=== PATIENT | female | born 1950 | race Caucasian/White ===

== ENCOUNTER → 2023-08-18 23:59 | Outpatient (BNV) | payer OTHER, SELFPAY | PROVIDERS: PCP Internal Medicine; Visit Provider Internal Medicine Cardiovascular Disease | DX: I21.4 Non-ST elevation (NSTEMI) myocardial infarction (principal); I50.30 Unspecified diastolic (congestive) heart failure | CPT/HCPCS: 93458; 99152 ==

== ENCOUNTER 2023-09-20 08:25 | Outpatient (AMB) | payer OTHER, SELFPAY ==
--- NOTE | 2023-09-20 08:38 | A.OFFVIS_ITS ---
Intake Vital Signs 09/20/23 08:40 Height 5 ft 2.5 in Weight 164 lb 14.492 oz BMI 29.7 BP 130/62 Blood Pressure Location Lt brachial Position Sitting Pulse 73 Intake Visit Reasons: fu bmc dc Intake Note: [facility] [place] Batt Packer Required: No Accompanied by: Self / Same As Patient Allergies simvastatin Adverse Reaction (Intermediate, Verified 09/20/23 08:41) Muscle Pain Medication List - Last Reconciled 09/20/23 by Chris Mendiola MD apixaban (Eliquis) 5 mg PO BID aspirin 81 mg PO DAILY lisinopril 5 mg PO DAILY metoprolol tartrate 50 mg PO BID rosuvastatin 10 mg PO BEDTIME tamsulosin 0.8 mg PO DAILY HPI HPI Comments History of Present Illness Details Kelsie is here for follow-up after recent hospitalization to [facility]. She was seen initially by in the clinic due to atrial fibrillation. She has had atrial fibrillation for about 6 months since January 2023. That was leading to shortness of breath. He saw her in July and started on flecainide. After few days, he arrange elective cardioversion. After cardioversion, patient actually had hospitalization with shortness of breath and in that context also had some elevation of troponins. She was thought to be in congestive heart failure. That led to cardiac catheterization that showed significant left main disease and eventually leading to bypass surgery. After bypass, patient now returns for follow-up. She states she is actually doing much better. However, she still feels the palpitations. It seems she is back in atrial fibrillation. [facility] Medical History (Updated 09/20/23 @ 08:47 by Chris Mendiola MD) PAF (paroxysmal atrial fibrillation) Atherosclerotic cardiovascular disease Surgical History (Updated 09/20/23 @ 08:43 by Sydnee Barrett) Hx of CABG Family History (Updated 09/20/23 @ 08:43 by Sydnee Barrett) Mother No problems noted. Father No problems noted. (Updated 09/20/23 @ 08:44 by Sydnee Barrett) Alcohol intake: current Alcohol intake frequency: a few times a week Alcohol type: wine Patient Tobacco Use Status: Former Tobacco user Quit Date: 08/10/2023 Years Smoked: 20 +/- Review of Systems Const Denies weakness ENT Denies dizziness Card Denies chest pain, Denies chest pain with activity, Denies syncope, Denies rapid heart rate, Denies pedal edema, Denies edema, Denies leg edema, Denies lightheadedness, Denies palpitations, Denies dyspnea, Denies dyspnea on exertion and Denies orthopnea Resp Denies cough, Denies dyspnea and Denies dyspnea on exertion GI Denies hematochezia and Denies change in stool character Musc Denies abnormal gait, Denies muscle cramps, Denies muscle weakness, Denies numbness, Denies radiating pain into limb and Denies tingling Neuro Denies abnormal gait, Denies dizziness, Denies syncope, Denies numbness, Denies tingling and Denies weakness Endo Denies palpitations Physical Exam Vital Signs: Last Vital Signs Pulse 73 09/20/23 08:40 BP 130/62 09/20/23 08:40 BMI result Body Mass Index 29.7 Const General: comfortable and no acute distress Orientation/consciousness: patient oriented x3 HEENT Other: Unremarkable Head: Yes normal to inspection Neck Neck: Yes normal visual inspection Chest Chest palpation & inspection: normal inspection of the chest Resp Auscultation: clear to auscultation bilaterally Cardio Palpation: normal PMI Heart sounds: S1 normal heart sound present, S2 normal heart sound present, no gallops, no murmurs and no rubs GI Palpation (GI): Soft to palpation Back/Spine/Pelvis Other: unremarkable Skin General skin exam: no rashes or lesions noted Neuro General: patient oriented x3 Extrem General: Yes normal to inspection Psych Mental Status: mental status grossly normal Office Procedures EKG Details: EKG with atrial fibrillation at a rate of 73/Min. Cannot exclude old anteroseptal infarct. 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 Status post coronary bypass. She is currently in cardiac rehabilitation. Continue that. Continue aspirin. Continue statins. Will get the latest lipids from [facility]. (2) PAF (paroxysmal atrial fibrillation): Code(s): I48.0 - Paroxysmal atrial fibrillation Plan: She is no longer suitable for flecainide. Although she had cardioversion, she is back in atrial fibrillation. Per surgical notes, it seems that she had bradycardia and then amiodarone was stopped. Probably need to do another cardioversion but patient states she wants to wait for a few weeks at least till she completely heals from the surgery. That seems acceptable. In the interim, continue beta-blockers and anticoagulation. Check Holter. Plan Total time spent including review of data, counseling, documentation, coordination care-35 minutes. Orders: Orders CA echo transthoracic complete Today I25.10 - Atherosclerotic heart disease of [place] coronary artery without angina pectoris, I48.0 - Paroxysmal atrial fibrillation ECG 3 day holter monitor Today I48.0 - Paroxysmal atrial fibrillation, R00.2 - Palpitations Coding Level of Care Code Est Pt Level 4 (47038) Diagnoses Atherosclerotic cardiovascular disease I25.10 PAF (paroxysmal atrial fibrillation) I48.0 CPT Codes EKG - CPT: 77066-[id number], Complete ([id number])
[2023-09-20 08:40] VITALS: BP 130/62; PULSE 73; BMI 29.7
== END 2023-09-20 09:01 | disposition home or self-care (01) ==
PROVIDERS: PCP Internal Medicine; Visit Provider Internal Medicine
DX: I25.10 Atherosclerotic heart disease of native coronary artery without angina pectoris (principal); I48.0 Paroxysmal atrial fibrillation
CPT/HCPCS: 93010; 99214

== ENCOUNTER → 2023-09-20 08:25 | Outpatient (BNVA) | payer OTHER, SELFPAY | PROVIDERS: PCP Internal Medicine; Visit Provider Internal Medicine | DX: I25.10 Atherosclerotic heart disease of native coronary artery without angina pectoris (principal); I48.0 Paroxysmal atrial fibrillation | CPT/HCPCS: 93005 ==

== ENCOUNTER → 2023-10-28 07:54 | Outpatient (REF) | payer OTHER, SELFPAY ==
--- NOTE | 2023-10-28 08:01 | HM_ITS ---
* Total monitoring time 3 days. * Underlying rhythm is atrial fibrillation with an average rate of 73/Min. Range 61 to 114/Min. * Rare ventricular ectopy. Few couplets. One triplet. No significant runs. * No significant pauses or AV blocks. * No patient markers or events in diary. MTDD
== END ==
LOC: HO.CARD 07:54
PROVIDERS: PCP Internal Medicine; Visit Provider Internal Medicine
DX: R07.2 Precordial pain (principal); I48.0 Paroxysmal atrial fibrillation; I25.10 Atherosclerotic heart disease of native coronary artery without angina pectoris
CPT/HCPCS: 93242; 93306

== ENCOUNTER → 2023-10-28 08:01 | Outpatient (BNV) | payer OTHER, SELFPAY | PROVIDERS: PCP Internal Medicine; Visit Provider Internal Medicine Cardiovascular Disease | DX: I48.0 Paroxysmal atrial fibrillation (principal) | CPT/HCPCS: 93244; 93306 ==

== ENCOUNTER 2023-11-22 09:07 | Outpatient (AMB) | payer OTHER, SELFPAY ==
--- NOTE | 2023-11-22 09:09 | MHC.OFFVIS ---
Intake Vital Signs 11/22/23 09:10 Height 5 ft 2.5 in Weight 158 lb 11.725 oz BMI 28.6 BP 130/62 Blood Pressure Location Lt brachial Position Sitting Pulse 78 Intake Visit Reasons: f/up holter/ echo Intake Note: follow up Traffic Assistant Required: No Accompanied by: Self / Same As Patient Allergies simvastatin Adverse Reaction (Intermediate, Verified 11/22/23 09:10) Muscle Pain Medication List - Last Reconciled 11/22/23 by Chris Mendiola MD apixaban (Eliquis) 5 mg PO BID aspirin 81 mg PO DAILY lisinopril 5 mg PO DAILY metoprolol tartrate 50 mg PO BID rosuvastatin 10 mg PO BEDTIME HPI HPI Comments History of Present Illness Details Kelsie is here for follow-up after recent hospitalization to [facility]. She was seen initially by in the clinic due to atrial fibrillation. She has had atrial fibrillation for about 6 months since January 2023. That was leading to shortness of breath. He saw her in July and started on flecainide. After few days, he arranged elective cardioversion. After cardioversion, patient actually had hospitalization with shortness of breath and in that context also had some elevation of troponins. She was thought to be in congestive heart failure. That led to cardiac catheterization that showed significant left main disease and eventually leading to bypass surgery. She states that she is actually doing fine. Rarely feels palpitations. No other complaints like angina or shortness of breath. No other complaints. States she is getting along okay. [facility] Medical History (Updated 11/22/23 @ 09:33 by Chris Mendiola MD) PAF (paroxysmal atrial fibrillation) Atherosclerotic cardiovascular disease Surgical History Hx of CABG Family History Mother No problems noted. Father No problems noted. Social History Alcohol intake: current Alcohol intake frequency: a few times a week Alcohol type: wine Patient Tobacco Use Status: Former Tobacco user Quit Date: 08/10/2023 Years Smoked: 20 +/- Review of Systems Const Denies weakness ENT Denies dizziness Card Denies chest pain, Denies chest pain with activity, Denies syncope, Denies rapid heart rate, Denies pedal edema, Denies edema, Denies leg edema, Denies lightheadedness, Denies palpitations, Denies dyspnea, Denies dyspnea on exertion and Denies orthopnea Resp Denies cough, Denies dyspnea and Denies dyspnea on exertion GI Denies hematochezia and Denies change in stool character Musc Denies abnormal gait, Denies muscle cramps, Denies muscle weakness, Denies numbness, Denies radiating pain into limb and Denies tingling Neuro Denies abnormal gait, Denies dizziness, Denies syncope, Denies numbness, Denies tingling and Denies weakness Endo Denies palpitations Physical Exam Vital Signs: Last Vital Signs Pulse 78 11/22/23 09:10 BP 130/62 11/22/23 09:10 BMI result Body Mass Index 28.6 Const General: comfortable and no acute distress Orientation/consciousness: patient oriented x3 HEENT Other: Unremarkable Head: Yes normal to inspection Neck Neck: Yes normal visual inspection Chest Chest palpation & inspection: normal inspection of the chest Resp Auscultation: clear to auscultation bilaterally Cardio Palpation: normal PMI Heart sounds: S1 normal heart sound present, S2 normal heart sound present, no gallops, no murmurs and no rubs GI Palpation (GI): Soft to palpation Back/Spine/Pelvis Other: unremarkable Skin General skin exam: no rashes or lesions noted Neuro General: patient oriented x3 Extrem General: Yes normal to inspection Psych Mental Status: mental status grossly normal Assessment & Plan Assessment & Plan (1) Atherosclerotic cardiovascular disease: Code(s): I25.10 - Atherosclerotic heart disease of [place] coronary artery without angina pectoris Plan: Cardiac catheterization showed critical left main stenosis and mid RCA [place] with collaterals. Status post coronary bypass. Continue aspirin. Continue statins. She states she is due for labs through her PCP and advised her to send us copies. We need lipids. (2) PAF (paroxysmal atrial fibrillation): Code(s): I48.0 - Paroxysmal atrial fibrillation Plan: We discussed about another cardioversion but she states she would rather hold off at this time. She would like to leave things the way they are. She remains on beta-blockers and Eliquis. Holter shows atrial fibrillation with adequate rate control. In the echocardiogram, left atrium described to be moderately dilated. (3) Cardiomyopathy: Code(s): I42.9 - Cardiomyopathy, unspecified Plan: Echocardiogram shows mild cardiomyopathy with an LVEF of 45-50%. Could be related to coronary disease as well as atrial fibrillation. Clinically, no heart failure symptoms or signs. Plan Total time spent including review of data, counseling, documentation, coordination care-35 minutes. Coding Level of Care Code Est Pt Level 4 (38975) Diagnoses Atherosclerotic cardiovascular disease I25.10 PAF (paroxysmal atrial fibrillation) I48.0 Cardiomyopathy I42.9
[2023-11-22 09:10] VITALS: BP 130/62; PULSE 78; BMI 28.6
== END 2023-11-22 09:26 | disposition home or self-care (01) ==
PROVIDERS: PCP Internal Medicine; Visit Provider Internal Medicine
DX: I25.10 Atherosclerotic heart disease of native coronary artery without angina pectoris (principal); I48.0 Paroxysmal atrial fibrillation; I42.9 Cardiomyopathy, unspecified
CPT/HCPCS: 99214

== ENCOUNTER → 2023-11-22 09:07 | Outpatient (BNVA) | payer OTHER, SELFPAY | PROVIDERS: PCP Internal Medicine; Visit Provider Internal Medicine ==

== ENCOUNTER 2024-03-05 08:29 | Outpatient (AMB) | payer OTHER, SELFPAY ==
[2024-03-05 08:40] VITALS: BP 140/78; PULSE 78; O2SAT 98; BMI 29.0
--- NOTE | 2024-03-05 08:40 | A.OFFVIS_ITS ---
Vital Signs 03/05/24 08:40 Height 5 ft 2.5 in Weight 160 lb 14.999 oz BMI 29.0 BP 140/78 H Blood Pressure Location Lt brachial Position Sitting Pulse 78 Pulse Source Pulse Oximeter Pulse Oximetry (%) 98 Oxygen Delivery Method Room Air Intake Visit Reasons: 4 mth f/up Allergies simvastatin Adverse Reaction (Intermediate, Verified 11/22/23 09:10) Muscle Pain Medication List - Last Reconciled 03/05/24 by Chris Mendiola MD apixaban (Eliquis) 5 mg PO BID aspirin 81 mg PO DAILY lisinopril 5 mg PO DAILY metoprolol tartrate 50 mg PO BID rosuvastatin 20 mg PO DAILY HPI Comments Details: Kelsie returns for follow-up. To recall, she was seen initially by in the clinic due to atrial fibrillation. She has had atrial fibrillation for a bout 6 months since January 2023. That was leading to shortness of breath. He saw her in July and started on flecainide. After few days, he arranged elective cardioversion. After cardioversion, patient actually had hospitalization with shortness of breath and in that context also had some elevation of troponins. She was thought to be in congestive heart failure. That led to cardiac catheterization that showed significant left main disease and eventually leading to bypass surgery. Since last seen, she states that her legs are getting tired soon after walking but otherwise no specific symptoms like angina or shortness of breath or palpitations. [facility] Medical History (Updated 03/05/24 @ 10:04 by Chris Mendiola MD) PAF (paroxysmal atrial fibrillation) Atherosclerotic cardiovascular disease Surgical History Hx of CABG Family History Mother No problems noted. Father No problems noted. Social History Alcohol intake: current Alcohol intake frequency: a few times a week Alcohol type: wine Patient Tobacco Use Status: Former Tobacco user Quit Date: 08/10/2023 Years Smoked: 20 +/- Review of Systems Const Denies weakness ENT Denies dizziness Card Denies chest pain, Denies chest pain with activity, Denies syncope, Denies rapid heart rate, Denies pedal edema, Denies edema, Denies leg edema, Denies lightheadedness, Denies palpitations, Denies dyspnea, Denies dyspnea on exertion and Denies orthopnea Resp Denies cough, Denies dyspnea and Denies dyspnea on exertion GI Denies hematochezia and Denies change in stool character Musc Denies abnormal gait, Denies muscle cramps, Denies muscle weakness, Denies numbness, Denies radiating pain into limb and Denies tingling Neuro Denies abnormal gait, Denies dizziness, Denies syncope, Denies numbness, Denies tingling and Denies weakness Endo Denies palpitations Physical Exam Vital Signs: Last Vital Signs Pulse 78 03/05/24 08:40 BP 140/78 H 03/05/24 08:40 Pulse Ox 98 03/05/24 08:40 Oxygen Delivery Method Room Air 03/05/24 08:40 BMI result Body Mass Index 29.0 Const General: comfortable and no acute distress Orientation/consciousness: patient oriented x3 HEENT Other: Unremarkable Head: Yes normal to inspection Neck Neck: Yes normal visual inspection Chest Chest palpation & inspection: normal inspection of the chest Resp Auscultation: clear to auscultation bilaterally Cardio Palpation: normal PMI Heart sounds: S1 normal heart sound present, S2 normal heart sound present, no gallops, no murmurs and no rubs GI Palpation (GI): Soft to palpation Back/Spine/Pelvis Other: unremarkable Skin General skin exam: no rashes or lesions noted Neuro General: patient oriented x3 Extrem General: Yes normal to inspection Psych Mental Status: mental status grossly normal Assessment & Plan Assessment & Plan (1) Atherosclerotic cardiovascular disease: Code(s): I25.10 - Atherosclerotic heart disease of [place] coronary artery without angina pectoris Category: Medical Plan: Cardiac catheterization showed critical left main stenosis 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 Status post coronary bypass. Doing well. Remains on aspirin and statins. Possibly, just Eliquis only in the long run and stop aspirin. Lipids are being followed through her own PCP. She states that her statin dose has recently been increased. Last LDL is 77 mg/dL. (2) Persistent atrial fibrillation: Code(s): I48.19 - Other persistent atrial fibrillation Category: Medical Plan: Prior Holter shows atrial fibrillation adequate rate control. In the echocardiogram, moderately dilated left atrium. We discussed about consequences of chronic persistent atrial fibrillation. At this time, she states that she would like to hold off as she did not have a good experience last time. We will reassess next time. (3) Cardiomyopathy: Code(s): I42.9 - Cardiomyopathy, unspecified Category: Medical Plan: Echocardiogram shows mild cardiomyopathy with an LVEF of 45-50%. Could be related to coronary disease as well as atrial fibrillation. Clinically, no heart failure symptoms or signs. Recheck before next visit. Orders: Orders ECG 3 day holter monitor 3 Months I48.0 - Paroxysmal atrial fibrillation CA echo transthoracic complete 3 Months I42.9 - Cardiomyopathy, unspecified Coding Level of Care Code Est Pt Level 4 (77099) Diagnoses Atherosclerotic cardiovascular disease I25.10 Persistent atrial fibrillation I48.19 Cardiomyopathy I42.9
== END 2024-03-05 09:35 | disposition home or self-care (01) ==
PROVIDERS: PCP Internal Medicine; Referring Provider Internal Medicine; Visit Provider Internal Medicine
DX: I25.10 Atherosclerotic heart disease of native coronary artery without angina pectoris (principal); I48.19 Other persistent atrial fibrillation; I42.9 Cardiomyopathy, unspecified
CPT/HCPCS: 99214

== ENCOUNTER → 2024-03-05 08:29 | Outpatient (BNVA) | payer OTHER, SELFPAY | PROVIDERS: PCP Internal Medicine; Visit Provider Internal Medicine ==

== ENCOUNTER 2024-03-23 12:06 | Day surgery (SDC) | payer OTHER, SELFPAY ==
[2024-03-21 15:55] VITALS: BMI 29.0
[2024-03-23] VITALS (7 sets, daily range): BP systolic 109–152; BP diastolic 55–97; PULSE 73–140; RESP 16; TEMP 36.1–36.5; O2SAT 97–99; BMI 29.0
[2024-03-23] MEDS: Lactated Ringers 1,000 ML 50 ML IVCONT (12:59)
--- NOTE | 2024-03-23 13:37 | HO.ANESPROP2 ---
COUNTS INCLUDE 234 BEDS AT THE [facility] Active Problems Active Problems: All Active Problems (Updated 03/23/24 @ 12:30 by Ciara Adams RN) Persistent atrial fibrillation (Acute) Cardiomyopathy (Acute) PAF (paroxysmal atrial fibrillation) (Acute) Atherosclerotic cardiovascular disease (Acute) Past Medical History Medical History (Updated 03/23/24 @ 12:30 by Ciara Adams RN) Thyroid nodule Diet-controlled diabetes mellitus PAF (paroxysmal atrial fibrillation) Atherosclerotic cardiovascular disease Family History Family History Mother No problems noted. Father No problems noted. Family history of problems with anesthesia: No Surgical History Surgical History H/O colonoscopy Hx of CABG History of Problems with Anesthesia: No Social History Social History Alcohol intake: current Alcohol intake frequency: holidays/special occasions only Alcohol type: wine Patient Tobacco Use Status: Former Tobacco user Years Smoked: 20 +/- Use of substances other than those prescribed or required for medical reasons: No Are you DNR?: No Advance Directives: No Advance Directives Information Provided: Yes Meds Allergies Allergy/AdvReac Type Severity Reaction Status Date / Time simvastatin AdvReac Intermediate Muscle Pain Verified 03/23/24 12:30 Active Medications: Current Medications Lactated Ringer's (Lr) 1,000 mls @ 50 mls/hr IVCONT .Q20H VELVET Last Admin: 03/23/24 12:59 Dose: 50 mls/hr Home Medications ?Medication ?Instructions ?Recorded ?Confirmed ?Last Taken ?Type apixaban 5 mg tablet (Eliquis) 5 mg PO BID 09/20/23 03/05/24 Unknown History aspirin 81 mg tablet,delayed 81 mg PO DAILY 09/20/23 03/05/24 Unknown History release lisinopril 5 mg tablet 5 mg PO DAILY 09/20/23 03/05/24 Unknown History metoprolol tartrate 50 mg tablet 50 mg PO BID 09/20/23 03/05/24 Unknown History rosuvastatin 20 mg tablet 20 mg PO DAILY 03/05/24 03/05/24 Unknown History Exam Height,Weight and Vital Signs: Height 5 ft 2.5 in Weight 73.028 kg Last Vital Signs Temp 97.7 F 03/23/24 12:39 Pulse 140 H 03/23/24 12:39 Resp 16 03/23/24 12:39 BP 151/97 H 03/23/24 12:39 Pulse Ox 97 03/23/24 12:39 O2 Del Method Room Air 03/23/24 12:39 Airway Mallampati Class: II (caps laterally) TM Dist: >3cm Neck ROM: Full Heart: irreg Lungs: cts Assessment and Plan Assessment Anesthesia Assessment: Anesthesia Plan Discussed and Chart Reviewed Final Anesthetic Review Family History of Problems with Anesthesia: No History of Problems with Anesthesia: No NPO: Yes ASA Class: III Final Preanesthetic Review: No Changes in Pt Med Stat, Meds/Allgs Chart Reviewed and Consent Obtained/Reviewed Patient Risk: Low Procedure Risk: Low Anesthetic Plan Anesthetic Plan: MAC: Disposition: Standard PACU
--- NOTE | 2024-03-23 13:39 | MHC.SHP ---
Pre-Procedural Eval Section A - 24 Hr Update-Section A only Date of Service: 03/23/24 The patient is an INPATIENT: No Section B - Complete if H&P > 30 days Chief Complaint: Paroxysmal atrial fibrillation Allergies: Allergies Allergy/AdvReac Type Severity Reaction Status Date / Time simvastatin AdvReac Intermediate Muscle Pain Verified 03/23/24 12:30 Plan I have reviewed the history and physical and performed a pertinent physical examination on my patient. No changes have occurred unless specified. Time Spent With Patient Time: Total time managing care of this patient today ____ minutes.
--- NOTE | 2024-03-23 13:40 | HO.CARDIVERS ---
Cardioversion Procedure Note Cardioversion Date of Procedure: 03/23/2024 Indication for Procedure: Atrial fibrillation rapid ventricular rate Pre-Op Diagnosis: Atrial fibrillation Post-Op Diagnosis: Sinus rhythm Consent: Informed consent obtained. Procedure: After informed consent was obtained, patient was taken to the PACU. The patient was then positioned appropriately. The cardioversion pads were placed in anteroposterior position. Once under anesthesia, 120 joules of synchronized shock was administered. The rhythm converted from atrial fibrillation to sinus rhythm. Patient remained in sinus rhythm after the end of procedure. Complications: None. Impression: Successful cardioversion. Recommendations: Start amiodarone loading followed by maintenance. Continue anticoagulation. Follow-up in clinic.
--- NOTE | 2024-03-23 14:15 | ECG_ITS ---
Test Reason : s/p cardioversion Blood Pressure : / mmHG Vent. Rate : 077 BPM Atrial Rate : 077 BPM P-R Int : 184 ms QRS Dur : 094 ms QT Int : 392 ms P-R-T Axes : 091 093 -08 degrees QTc Int : 443 ms Sinus rhythm with a demand pacemaker Premature atrial complexes Premature ventricular complexes Rightward axis Anterior infarct , age undetermined T wave abnormality, consider inferior ischemia Abnormal ECG No previous ECGs available Referred By: Francisco Sanders Electronically Signed By:FRANCISCO SANDERS
[2024-03-23] MEDS: Metoprolol Tartrate 50 MG TABLET PO (14:54)
[2024-03-23] MEDS: Amiodarone HCL 200 MG TABLET 400 MG PO (14:57)
== END 2024-03-23 15:27 | disposition home or self-care (01) ==
PROVIDERS: PCP Internal Medicine; Visit Provider Internal Medicine
PROC: 5A2204Z Restoration of Cardiac Rhythm, Single (ICD-10-PCS; principal; 2024-03-23 13:50)
DX: I48.19 Other persistent atrial fibrillation (principal); I25.10 Atherosclerotic heart disease of native coronary artery without angina pectoris; I42.9 Cardiomyopathy, unspecified; Z79.01 Long term (current) use of anticoagulants; Z79.82 Long term (current) use of aspirin; Z79.899 Other long term (current) drug therapy; Z95.1 Presence of aortocoronary bypass graft
CPT/HCPCS: 92960; 93005; J2704

== ENCOUNTER → 2024-03-23 12:06 | Outpatient (BNV) | payer OTHER, SELFPAY | PROVIDERS: PCP Internal Medicine; Visit Provider Internal Medicine | DX: I48.91 Unspecified atrial fibrillation (principal) | CPT/HCPCS: 92960; 93010 ==

== ENCOUNTER 2024-03-30 08:44 | Outpatient (AMB) | payer OTHER, SELFPAY ==
--- NOTE | 2024-03-30 09:00 | AM.OFFVISNUR ---
Intake Intake Visit Reasons: EKG post 03/23 cardioversion Allergies simvastatin Adverse Reaction (Intermediate, Verified 03/23/24 12:30) Muscle Pain Nursing Note EKG performed after cardioversion PT states she is doing and feels much better no symptoms PT take Amiodarone 200mg PO daily / 400 mg PO BID Office Procedures EKG [id number], Complete Coding CPT Codes EKG - CPT: 00403-[id number], Complete ([id number])
== END 2024-03-30 10:05 | disposition home or self-care (01) ==
PROVIDERS: PCP Internal Medicine; Visit Provider Internal Medicine
DX: R94.31 Abnormal electrocardiogram [ECG] [EKG] (principal)
CPT/HCPCS: 93010

== ENCOUNTER → 2024-03-30 08:44 | Outpatient (BNVA) | payer OTHER, SELFPAY | PROVIDERS: PCP Internal Medicine; Visit Provider Internal Medicine | DX: Z98.890 Other specified postprocedural states (principal) | CPT/HCPCS: 93005 ==

== ENCOUNTER → 2024-05-24 09:46 | Outpatient (REF) | payer OTHER, SELFPAY ==
--- NOTE | 2024-05-24 09:49 | HM_ITS ---
* Total monitoring time 3 days. * Underlying rhythm is sinus with an average rate of 51/Min. About 96% of the time, rate < 60/Min. * Rare supraventricular and ventricular ectopy. * No significant pauses or high-grade AV blocks. * No patient markers or diary events. MTDD
== END ==
LOC: HO.CARD 09:46
PROVIDERS: PCP Internal Medicine; Visit Provider Internal Medicine
DX: I48.0 Paroxysmal atrial fibrillation (principal); I42.9 Cardiomyopathy, unspecified
CPT/HCPCS: 93242

== ENCOUNTER → 2024-05-24 09:49 | Outpatient (BNV) | payer OTHER, SELFPAY | PROVIDERS: PCP Internal Medicine; Visit Provider Internal Medicine | DX: I47.10 Supraventricular tachycardia, unspecified (principal) | CPT/HCPCS: 93244 ==

== ENCOUNTER 2024-06-11 10:00 | Outpatient (AMB) | payer OTHER, SELFPAY ==
[2024-06-11 10:18] VITALS: BP 130/60; PULSE 55; BMI 29.0
--- NOTE | 2024-06-11 10:18 | A.OFFVIS_ITS ---
Vital Signs 06/11/24 10:18 Height 5 ft 2 in Weight 158 lb 11.725 oz BMI 29.0 BP 130/60 Blood Pressure Location Lt brachial Position Sitting Pulse 55 Pulse Source Monitor Intake Visit Reasons: 3m follow up/echo/holter Allergies simvastatin Adverse Reaction (Intermediate, Verified 03/23/24 12:30) Muscle Pain Medication List - Last Reconciled 06/11/24 by Chris Mendiola MD amiodarone 200 mg PO DAILY 90 days apixaban (Eliquis) 5 mg PO BID aspirin 81 mg PO DAILY lisinopril 5 mg PO DAILY metoprolol tartrate 25 mg PO BID rosuvastatin 20 mg PO DAILY HPI Comments Details: Kelsie returns for follow-up. To recall, she was seen initially by in the clinic due to atrial fibrillation. She has had atrial fibrillation for about 6 months since January 2023. That was leading to shortness of breath. He saw her and started on flecainide. After few days, he arranged elective cardioversion. After cardioversion, patient actually had hospitalization with shortness of breath and in that context also had some elevation of troponins. She was thought to be in congestive heart failure. That led to cardiac catheterization that showed significant left main disease and eventually leading to bypass surgery. She continued to be in atrial fibrillation after the bypass surgery. Recently, we did elective cardioversion and now she is back to normal sinus rhythm. She states she feels good. No specific cardiac complaints. [facility] Medical History (Updated 03/23/24 @ 12:30 by Ciara Adams RN) Thyroid nodule Diet-controlled diabetes mellitus PAF (paroxysmal atrial fibrillation) Atherosclerotic cardiovascular disease Surgical History H/O colonoscopy Hx of CABG Family History Mother No problems noted. Father No problems noted. Social History Alcohol intake: current Alcohol intake frequency: holidays/special occasions only Alcohol type: wine Patient Tobacco Use Status: Former Tobacco user Years Smoked: 20 +/- Review of Systems Const Denies weakness ENT Denies dizziness Card Denies chest pain, Denies chest pain with activity, Denies syncope, Denies rapid heart rate, Denies pedal edema, Denies edema, Denies leg edema, Denies lighthead edness, Denies palpitations, Denies dyspnea, Denies dyspnea on exertion and Denies orthopnea Resp Denies cough, Denies dyspnea and Denies dyspnea on exertion GI Denies hematochezia and Denies change in stool character Musc Denies abnormal gait, Denies muscle cramps, Denies muscle weakness, Denies numbness, Denies radiating pain into limb and Denies tingling Neuro Denies abnormal gait, Denies dizziness, Denies syncope, Denies numbness, Denies tingling and Denies weakness Endo Denies palpitations Physical Exam Vital Signs: Last Vital Signs Pulse 55 06/11/24 10:18 BP 130/60 06/11/24 10:18 BMI result Body Mass Index 29.0 Const General: comfortable and no acute distress Orientation/consciousness: patient oriented x3 HEENT Other: Unremarkable Head: Yes normal to inspection Neck Neck: Yes normal visual inspection Chest Chest palpation & inspection: normal inspection of the chest Resp Auscultation: clear to auscultation bilaterally Cardio Palpation: normal PMI Heart sounds: S1 normal heart sound present, S2 normal heart sound present, no gallops, no murmurs and no rubs GI Palpation (GI): Soft to palpation Back/Spine/Pelvis Other: unremarkable Skin General skin exam: no rashes or lesions noted Neuro General: patient oriented x3 Extrem General: Yes normal to inspection Psych Mental Status: mental status grossly normal Office Procedures EKG Details: EKG with sinus bradycardia at 55/Min; rightward axis; incomplete right bundle- branch block and can not exclude old anterior infarct; borderline [place] prolongation to 208 millisecond; [place]. [id number], Complete Assessment & Plan Assessment & Plan (1) Atherosclerotic cardiovascular disease: Code(s): I25.10 - Atherosclerotic heart disease of [place] coronary artery without angina pectoris Category: Medical Plan: Status post coronary bypass. Doing well. Remains on aspirin and statins. Possibly, just Eliquis only in the long run and stop aspirin. Lipids are being followed through her own PCP. She states that her statin dose has recently been increased. Last LDL is 77 mg/dL. (2) Persistent atrial fibrillation: Code(s): I48.19 - Other persistent atrial fibrillation Category: Medical Plan: Status post cardioversion. In the Holter monitor, underlying rhythm is sinus bradycardia with an average rate of 51/Min and mostly in sinus bradycardia. Hence we can decrease the beta-michael dose from 25 mg twice a day to once a day. Continue amiodarone for the foreseeable future. Eventually may be Multaq. Continue anticoagulation. (3) Cardiomyopathy: Code(s): I42.9 - Cardiomyopathy, unspecified Category: Medical Plan: Echocardiogram shows mild cardiomyopathy with an LVEF of 45-50%. Could be related to coronary disease as well as atrial fibrillation. Clinically, no heart failure symptoms or signs. Repeat echocardiogram denied by insurance. Medications: New metoprolol succinate ER (Toprol XL) 25 mg PO DAILY 90 tabs 3RF I48.0 - Paroxysmal atrial fibrillation Coding Level of Care Code Est Pt Level 4 (88829) Diagnoses Atherosclerotic cardiovascular disease I25.10 Persistent atrial fibrillation I48.19 Cardiomyopathy I42.9 CPT Codes EKG - CPT: 14033-[id number], Complete ([id number])
== END 2024-06-11 10:41 | disposition home or self-care (01) ==
PROVIDERS: PCP Internal Medicine; Visit Provider Internal Medicine
DX: I25.10 Atherosclerotic heart disease of native coronary artery without angina pectoris (principal); I48.19 Other persistent atrial fibrillation; I42.9 Cardiomyopathy, unspecified
CPT/HCPCS: 93010; 99214

== ENCOUNTER → 2024-06-11 10:00 | Outpatient (BNVA) | payer OTHER, SELFPAY | PROVIDERS: PCP Internal Medicine; Visit Provider Internal Medicine | DX: I25.10 Atherosclerotic heart disease of native coronary artery without angina pectoris (principal); I42.9 Cardiomyopathy, unspecified; Z79.01 Long term (current) use of anticoagulants; Z79.82 Long term (current) use of aspirin; Z79.899 Other long term (current) drug therapy | CPT/HCPCS: 93005 ==

== ENCOUNTER 2024-09-26 09:35 | Outpatient (AMB) | payer OTHER, SELFPAY ==
[2024-09-26 09:37] VITALS: BP 130/64; PULSE 79; BMI 29.8
--- NOTE | 2024-09-26 09:37 | A.OFFVIS_ITS ---
Vital Signs 09/26/24 09:37 Height 5 ft 2 in Weight 163 lb 2.273 oz BMI 29.8 BP 130/64 Blood Pressure Location Lt brachial Position Sitting Pulse 79 Pulse Source Monitor Intake Visit Reasons: 3 mth f/up Third Helper Required: No Accompanied by: Self / Same As Patient Allergies simvastatin Adverse Reaction (Intermediate, Verified 03/23/24 12:30) Muscle Pain Medication List - Last Reconciled 09/26/24 by Chris Mendiola MD amiodarone 100 mg PO DAILY apixaban (Eliquis) 5 mg PO BID cilostazol 50 mg PO BID lisinopril 5 mg PO DAILY metoprolol succinate ER (Toprol XL) 25 mg PO DAILY rosuvastatin 40 mg PO DAILY HPI Comments Details: Kelsie returns for follow-up regarding atrial fibrillation and coronary artery disease. She underwent cardioversion February of this year. May need on amiodarone and Eliquis. She is doing fine in that regard. Otherwise, history of coronary disease and that led to bypass surgery in 2022. No anginal-type symptoms. Rare episodes of dizziness. Somewhat nonspecific. She believes it started after taking cilostazol. However, it is helping her for some vascular symptoms. She also had recent thyroid surgery. 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 Father No problems noted. Social History Alcohol intake: current Alcohol intake frequency: holidays/special occasions only Alcohol type: wine Patient Tobacco Use Status: Former Tobacco user Years Smoked: 20 +/- Review of Systems Const Denies chills, Denies fatigue, Denies fever(s), Denies frequent falls, Denies weakness, Denies weight gain and Denies weight loss ENT Denies dizziness Card Denies chest pain, Denies leg edema, Denies lightheadedness, Denies palpitations, Denies dyspnea and Denies dyspnea on exertion Resp Denies cough, Denies dyspnea and Denies dyspnea on exertion GI Denies hematochezia Musc Denies abnormal gait, Denies muscle weakness, Denies numbness, Denies radiating pain into limb and Denies tingling Neuro Denies abnormal gait, Denies dizziness, Denies frequent falls, Denies numbness, Denies tingling and Denies weakness Endo Denies fatigue and Denies palpitations Physical Exam Vital Signs: Last Vital Signs Pulse 79 09/26/24 09:37 BP 130/64 09/26/24 09:37 BMI result Body Mass Index 29.8 Const General: comfortable and no acute distress Orientation/consciousness: patient oriented x3 HEENT Other: Unremarkable Head: Yes normal to inspection Neck Neck: Yes normal visual inspection Chest Chest palpation & inspection: normal inspection of the chest Resp Auscultation: clear to auscultation bilaterally Cardio Palpation: normal PMI Heart sounds: S1 normal heart sound present, S2 normal heart sound present, no gallops, no murmurs and no rubs GI Palpation (GI): Soft to palpation Back/Spine/Pelvis Other: unremarkable Skin General skin exam: no rashes or lesions noted Neuro General: patient oriented x3 Extrem General: Yes normal to inspection Psych Mental Status: mental status grossly normal Office Procedures EKG Details: EKG with underlying sinus rhythm at 79/Min; rightward axis; incomplete right bundle-branch block; DE 202 milliseconds; corrected QT 511 milliseconds. [id number], Complete Assessment & Plan Assessment & Plan (1) Atherosclerotic cardiovascular disease: Code(s): I25.10 - Atherosclerotic heart disease of [place] coronary artery without angina pectoris Category: Medical Plan: Status post coronary bypass. Clinically, no angina. We can stop aspirin as she is already on Eliquis. Last LDL from [facility] 100 mg/dL. Per patient, PCP has already increase the statin dose and she is also due for repeat labs. (2) PAF (paroxysmal atrial fibrillation): Code(s): I48.0 - Paroxysmal atrial fibrillation Category: Medical Plan: Status post cardioversion. In the Holter monitor, underlying rhythm is sinus bradycardia with an average rate of 51/Min and mostly in sinus bradycardia. On low-dose beta-blockers. We can decrease the Amiodarone to 100 mg daily because of interaction with Cilostazol. Decision regarding continuing Amiodarone long-term to be decided. Possible candidate for Multaq, but that might also cause QT prolongation with Cilostazol. Continue anticoagulation. Recheck EKG in 3 months. (3) Cardiomyopathy: Code(s): I42.9 - Cardiomyopathy, unspecified Category: Medical Plan: Echocardiogram shows mild cardiomyopathy with an LVEF of 45-50%. Could be related to coronary disease as well as atrial fibrillation. Clinically, no heart failure symptoms or signs. Repeat echocardiogram denied by insurance. Coding Level of Care Code Est Pt Level 4 (05573) Diagnoses Atherosclerotic cardiovascular disease I25.10 PAF (paroxysmal atrial fibrillation) I48.0 Cardiomyopathy I42.9 CPT Codes EKG - CPT: 30071-[id number], Complete ([id number])
--- OUTSIDE RECORDS SUMMARY | 2024-10-02 17:12 | XMS_ITS | Continuity of Care Document ---
Author Organization [facility] Address [address] [place] [address]- Care Team Providers Care Broadband Installer Name Role Phone Jo HANLEY, Lance Mix Primary Care Physician Encounter [facility] Date(s): 08/08/24 - 09/07/24 [facility] [address] [place] [address]- Encounter Type: Triage Allergies, Adverse Reactions, Alerts Substance Criticality Severity Reaction Reaction Severity Status Zocor very severe myalgias took 6 weeks to resolve Active egg-containing compound Active Immunizations Given and Recorded Vaccine Date Status Refusal Reason RSV vaccine preF3, recombinant 07/18/23 Recorded influenza virus vaccine, inactivated 07/18/23 Isidro rded influenza virus vaccine, inactivated 07/19/22 Isidro rded influenza virus vaccine, inactivated 07/06/21 Isidro rded influenza virus vaccine, inactivated 08/01/19 Isidro rded influenza virus vaccine, inactivated 08/30/18 Isidro rded influenza virus vaccine, inactivated 07/24/18 Isidro rded influenza virus vaccine, inactivated 11/15/17 Isidro rded influenza virus vaccine, inactivated 07/25/17 Isidro rded SARS-CoV-2(COVID-19)mRNA-LNP vac([id number]) 07/18/23 Recorded tetanus-diphtheria toxoids (Td) 02/10/23 Given tetanus-diphtheria toxoids (Td) 03/15/06 Given [id number] 12y+ bivalent booster vax 08/04/22 Recorded SARS-CoV-2 (COVID-19) mRNA BNT-162b2 vac 08/06/21 Recorded SARS-CoV-2 (COVID-19) mRNA BNT-162b2 vac 01/24/21 Given SARS-CoV-2 (COVID-19) mRNA BNT-162b2 vac 01/03/21 Given Influenza Virus Vaccine (oldterm) 1 07/25/20 Recor ded pneumococcal 23-valent vaccine 2 01/05/18 Given pneumococcal 13-valent vaccine 03/04/17 Recorded pneumococcal 13-valent vaccine 11/24/16 Recorded tetanus/diphtheria/pertussis, acel(Tdap) 02/20/13 Given Zoster Vaccine Live 01/08/13 Given Pneumococcal Vaccine (oldterm) 3 11/18/09 Given 1Result Comment: done at [facility] 2Result Comment: [01/05/2018] [id number] 3Admin Note: info sheet given Medications Accu-Chek Dianna Test Strips See Instructions, # 100 units, Refills 3, Tot. Refills 3, Maintenance, use daily BSs a re unstable,09/25/12 3:13:07 PM EST Start Date: 09/25/12 Status: Ordered Quantity: 100.0 Unit: Units Repeat number: 4 amiodarone 200 mg oral tablet 200 mg, 1, tablet, By Mouth, Daily, # 30 tablet, Refills 0, Maintenance, 04/09/24 9:45:00 AM EDT, Partial fill upon patient request if the prescription is for a schedule II opioid drug. Start Date: 04/09/24 Status: Ordered Quantity: 30.0 Unit: tablet Repeat number: 1 aspirin 81 mg oral delayed release tablet = 81 mg, By Mouth, Daily, # 30 tablet, 0 Refills, Maintenance, 08/31/23 2:29:00 PM EST, EC Tablet, [facility], Partial fill upon patient request if the prescription is for a schedule II opioid drug., 158, cm, 08/31/23 10:59:00 EST, Height, 71, kg, 08/20/23 20:30:00 EDT, Dry Weight Start Date: 08/31/23 Status: Ordered Quantity: 30.0 Unit: tablet Repeat number: 1 cilostazol 50 mg oral tablet 1 tablet = 50 mg, By Mouth, 2 times a day, # 60 tablet, 11 Refills, Maintenance, 07/26/24 4:31:00 PMEDT, Tablet, [facility]/pharmacy #[id number], Partial fill upon patient request if the prescription is for a schedule II opioid drug., 158, cm, 07/09/24 10:47:00 EDT, Height, 73.1, kg, 06/19/24 10:20:00 EDT, Dry Weight Start Date: 07/26/24 Status: Ordered Quantity: 60.0 Unit: tablet Repeat number: 12 Eliquis 5 mg oral tablet 1 tablet = 5 mg, By Mouth, 2 times a day, # 180 tablet, 3 Refills, Maintenance, 08/21/24 11:50:00 AM EDT, Tablet, [facility]/pharmacy #[id number], Partial fill upon patient request if the prescription is for a schedule II opioid drug., 158, cm, 07/09/24 10:47:00 EDT, Height, 73.1, kg, 06/19/24 10:20:00 EDT, DryWeight Start Date: 08/21/24 Status: Ordered Quantity: 180.0 Unit: tablet Repeat number: 4 lisinopril 5 mg oral tablet 5 mg, 1, tablet, By Mouth, Daily, # 90 tablet, Refills 3, Tot. Refills 3, Maintenance, 09/20/23 1:50:00 PM EST, Route to Pharmacy Electronically, [facility]/pharmacy #[id number], Partial fill upon patient requestif the prescription is for a schedule II opioid drug., 158, cm, 09/20/23 13:32:00 EST, Height, 76.25, kg, 09/09/23 9:49:00 EST, Dry Weight Start Date: 09/20/23 Stop Date: 09/14/24 Status: Ordered Quantity: 90.0 Unit: tablet Repeat number: 4 metoprolol succinate 25 mg oral capsule, extended release 1 capsule = 25 mg, By Mouth, Daily, # 30 capsule, 11 Refills, Maintenance, 06/19/24 11:07:00 AM EDT,Partial fill upon patient request if the prescription is for a schedule II opioid drug. Start Date: 06/19/24 Status: Ordered Quantity: 30.0 Unit: capsule Repeat number: 12 Multivitamin Tablet 1 tablet, By Mouth, Daily, 0 Refills, 03/15/06 4:29:12 PM EDT Start Date: 03/15/06 Status: Ordered Repeat number: 1 One Touch Ultra 2 Glucose Meter See Instructions, # 1 each, Maintenance, aodm 250.00 use daily, 02/24/15 2:53:30 PM EDT, Compound Start Date: 02/24/15 Status: Ordered Quantity: 1.0 Unit: each Repeat number: 1 One Touch Ultra Test Strips See Instructions, # 90 each, Refills 11, Tot. Refills 11, Maintenance, one touch ultra , aodm 250,00 use daily, 02/24/15 2:51:19 PM EDT, Compound Start Date: 02/24/15 Status: Ordered Quantity: 90.0 Unit: each Repeat number: 12 One Touch UltraSoft Lancets See Instructions, # 100 each, Refills 3, Tot. Refills 3, Maintenance, aodm 250.00, 02/24/15 2:54:50 PM EDT, Compound Start Date: 02/24/15 Status: Ordered Quantity: 100.0 Unit: each Repeat number: 4 rosuvastatin 40 mg oral tablet 1 tablet = 40 mg, By Mouth, Daily, # 90 tablet, 3 Refills, Maintenance, 06/14/24 12:06:00 PM EDT, Tablet, [facility][id number], this is an increase, 158, cm, 05/15/24 14:53:00 EDT, Height, 76.25, kg, 09/09/23 9:49:00 EST, Dry Weight Start Date: 06/14/24 Status: Ordered Quantity: 90.0 Unit: tablet Repeat number: 4 Problem List Condition Confirmation Course Effective Dates Status Health Status Informant Afib Confirmed Active CAD (coronary artery disease) 1 Confirmed Active Glucose intolerance Confirmed 2002 Active S/P CABG x 3 2 Confirmed 09/05/23 Active Hypercholesterolemia Confirmed 1990 Active Hypertension Confirmed Active Menopause Confirmed 1994 Active Osteopenia January 2009 -1.3, Confirmed Active Type 2 diabetes mellitus Confirmed Active 1Procedures Cardiac Surgery: CABG X 3 with the PEREIRA anastomosed to the LAD, Saphenous vein grafts to the OMB and the PDA Ligation Left Atrial Appendage Endoscopic Removal of Greater Saphenous Vein 2Procedures Cardiac Surgery: CABG X 3 with the PEREIRA anastomosed to the LAD, Saphenous vein grafts to the OMB and the PDA Ligation Left Atrial Appendage Endoscopic Removal of Greater Saphenous Vein Social History Social History Type Response Smoking Status Current every day sm oker; Tobacco user in household: Yes; Other: cutting down !!; Number of years: 25; Total pack years: 8; entered on: 04/18/18 Sex Sex Representation Female (finding) Patient Care team information Care Team Personnel Name: Omaira Gomez Position: [facility] RN Supv Member Role: Primary Care Nurse Name: Tanisha Flores RN Position: S RN Member Role: Primary Care Nurse Name: Ryne Carlson RN Position: S RN Member Role: Primary Care Nurse Name: Lance Osorio MD Position: [facility] Physician - Primary Care Member Role: PCP Address: [address] [place] [address] [facility] [address] Telecom: Name: Disha Hugo RN Position: S RN Member Role: Primary Care Nurse Name: Sofie Cosme RN Position: S RN Member Role: Primary Care Nurse Name: Katy Young RN Position: [facility] RN Member Role: Primary Care Nurse Name: Ashley Montalvo RN Position: [facility] RN Member Role: Primary Care Nurse Care Team Related Persons Name: KELLCAROL Insurance Providers Guarantor name: [facility] Information #: 1 Payer: [facility] POS Member Number: NA Policy Number: NA Group Number: NA
--- OUTSIDE RECORDS SUMMARY | 2024-10-02 17:12 | XMS_ITS | Continuity of Care Document ---
Author Organization [facility] ter Address [address] [place] [id number]- Care Team Providers Care Sas Administrator Name Role Phone Lance Osorio MD Primary Care Physician Encounter [facility] [place] Date(s): 09/12/24 - 09/13/[address] [address] Discharge Disposition: A-D/C Home Attending Physician: Td Baumann MD Admitting Physician: Td Baumann MD Referring Physician: Td Baumann MD Encounter Type: Disch Daystay Allergies, Adverse Reactions, Alerts Substance Criticality Severity [...] virus vaccine, inactivated 07/25/17 Isidro rded SARS-CoV-2(COVID-19)mRNA-LNP vac([id number]) 07/18/23 Recorded tetanus-diphtheria toxoids (Td) 02/10/23 Given tetanus-diphtheria toxoids (Td) 03/15/06 Given [id number] 12y+ bivalent booster vax 08/04/22 Recorded SARS-CoV-2 [...] 3 11/18/09 Given 1Result Comment: done at [facility] 2Result Comment: [01/05/2018] [id number] 3Admin Note: info sheet given Medications Accu-Chek Dianna Test Strips See Instructions, # 100 units, Refills 3, Tot. Refills 3, Maintenance, use daily BSs a re unstable,09/25/12 3:13:07 PM EST Start Date: 09/25/12 Status: Ordered Quantity: 100.0 Unit: Units Repeat number: 4 Acetaminophen Tablet 975 mg, Tablet, By Mouth, 09/13/24 3:00:00 AM EST Start Date: 09/13/24 Stop Date: 09/13/24 Status: Completed Repeat number: 1 amiodarone 200 mg oral tablet 200 mg, [...] Maintenance, 08/31/23 2:29:00 PM EST, EC Tablet, [facility], Partial fill upon patient request if the prescription is for a schedule II opioid drug., 158, cm, 08/31/23 10:59:00 EST, Height, 71, kg, 08/20/23 20:30:00 EDT, Dry Weight Start Date: 08/31/23 Status: Ordered Quantity: 30.0 Unit: tablet Repeat number: 1 cilostazol 50 mg oral tablet 1 tablet = 50 mg, By Mouth, 2 times a day, # 60 tablet, 0 Refills, Maintenance, 09/11/24 9:37:00 AMEST, Tablet, Partial fill upon patient request if the prescription is for a schedule II opioid drug. Start Date: 09/11/24 Status: Ordered Quantity: 60.0 Unit: tablet Repeat number: 1 Colace sodium 100 mg oral capsule 100 mg, 1, capsule, By Mouth, 2 times a day, PRN, with plenty of water, # 20 capsule, Refills 1, Tot. Refills 1, Maintenance, for constipation, 09/13/24 9:03:00 AM EST, Route to Pharmacy Electronically, [facility], Partial fill upon patient request if the prescription is for a schedule II opioid drug., 158, cm, 09/13/24 4:54:00 EST, Height, 70.5, kg, 09/12/24 18:24:00 EST, Dry Weight Start Date: 09/13/24 Status: Ordered Quantity: 20.0 Unit: capsule Repeat number: 2 Eliquis 5 mg oral tablet 1 tablet = 5 mg, By Mouth, 2 times a day, # 180 tablet, 3 Refills, Maintenance, 08/21/24 11:50:00 AM EDT, Tablet, [facility]/pharmacy #[id number], Partial fill upon patient request [...] 1:50:00 PM EST, Route to Pharmacy Electronically, [facility]/pharmacy #[id number], Partial fill upon patient requestif the prescription is for a schedule II opioid drug., 158, cm, 09/20/23 13:32:00 EST, Height, 76.25, kg, 09/09/23 9:49:00 EST, Dry Weight Start Date: 09/20/23 Stop Date: 09/14/24 Status: Ordered Quantity: 90.0 Unit: tablet Repeat number: 4 lisinopril 5 mg oral tablet 5 mg, Tablet, By Mouth, 09/13/24 9:00:00 AM EST Start Date: 09/13/24 Stop Date: 09/13/24 Status: Completed Repeat number: 1 metoprolol 25 mg oral tablet, extended release 25 mg, XL Tablet, By Mouth, 09/13/24 9:00:00 AM EST Start Date: 09/13/24 Stop Date: 09/13/24 Status: Completed Repeat number: 1 metoprolol succinate 25 mg oral capsule, extended [...] Quantity: 100.0 Unit: each Repeat number: 4 oxyCODONE 5 mg oral tablet 5 mg, 1, tablet, By Mouth, Every 6 hours, PRN, The patient may fill in an amount not to exceed the recommended full quantity indicated., # 5 tablet, Refills 0, Tot. Refills 0, Maintenance, for pain, 09/13/24 9:03:00 AM EST, Route to Pharmacy Electronically, [facility], Partial fill upon patient request if the prescription is for a schedule II opioid drug., 158, cm, 09/13/24 4:54:00 EST, Height, 70.5, kg, 09/12/24 18:24:00 EST, Dry Weight Start Date: 09/13/24 Status: Ordered Quantity: 5.0 Unit: tablet Repeat number: 1 rosuvastatin 40 mg oral tablet 1 tablet = 40 mg, By Mouth, Daily, # 90 tablet, 3 Refills, Maintenance, 06/14/24 12:06:00 PM EDT, Tablet, [facility]/pharmacy #[id number], this is an increase, 158, cm, 05/15/24 14:53:00 EDT, Height, 76.25, kg, 09/09/23 9:49:00 EST, Dry Weight Start Date: 06/14/24 Status: Ordered Quantity: 90.0 Unit: tablet Repeat number: 4 Tylenol Extra Strength 500 mg oral tablet 2 tablet = 1,000 mg, By Mouth, 3 times a day, PRN for pain, # 24 tablet, 0 Refills, Maintenance, 09/13/24 9:03:00 AM EST, Tablet, [facility], Partial fill upon patient request if the prescription is for a schedule II opioid drug., 158, cm, 09/13/24 4:54:00 EST, Height, 70.5, kg, 09/12/24 18:24:00 EST, Dry Weight Start Date: 09/13/24 Status: Ordered Quantity: 24.0 Unit: tablet Repeat number: 1 Problem List Condition Confirmation Course Effective Dates [...] Appendage Endoscopic Removal of Greater Saphenous Vein Vital Signs Most recent to oldest [Reference Range]: 1 2 3 Height 158 cm (09/13/24 4:54 AM) 158 cm (09/12/24 11:48 PM) 158 cm (09/12/24 8:14 PM) Weight 70.5 kg (09/12/24 6:24 PM) 75.6 kg (09/12/24 9:10 AM) 75 kg (09/11/24 9:45 AM) Oxygen Saturation [94-100 %] 99 % (09/13/24 7:00 AM) 99 % (09/13/24 4:54 AM) 98 % (09/12/24 11:48 PM) Pulse Rate [55-90 bpm] 75 bpm (09/13/24 8:46 AM) 61 bpm (09/13/24 7:00 AM) 63 bpm (09/13/24 4:54 AM) Body Mass Index [18.5-24.99 kg/m2] 28.24 kg/m2 *H* (09/12/24 6:24 PM) 30.28 kg/m2 *>HHI* (09/12/24 9:10 AM) 30.04 kg/m2 *>HHI* (09/11/24 9:45 AM) Blood Pressure [90-138/55-84 mm Hg] 164/61mm Hg *H* (09/13/24 8:46 AM) 164/61mm Hg *H* (09/13/24 8:46 AM) 164/61mm Hg *H* (09/13/24 7:00 AM) Respiratory Rate [16-30 br/min] 18 br/min (09/13/24 7:00 AM) 18 br/min (09/13/24 5:59 AM) 19 br/min (09/13/24 4:54 AM) Temperature [96.8-100.4 DegF] 97.8 DegF (09/13/24 7:00 AM) 97.8 DegF (09/13/24 4:54 AM) 98 DegF (09/12/24 11:48 PM) Liters per Minute 6 L/min (09/12/24 1:45 PM) Mode of Delivery (Oxygen) Room air (09/13/24 7:00 AM) Room air (09/13/24 4:54 AM) Room air (09/12/24 11:48 PM) Blood pressure sites Arm, left (09/13/24 7:00 AM) Arm, right (09/12/24 8:14 PM) Arm, right (09/12/24 6:24 PM) Temperature Route Oral (09/13/24 7:00 AM) Oral (09/13/24 4:54 AM) Oral (09/12/24 11:48 PM) Dry Weight 70.5 kg (09/12/24 6:24 PM) 75.6 kg (09/12/24 9:10 AM) 75 kg (09/11/24 9:45 AM) Weight Obtained Via Standing scale (09/12/24 9:10 AM) Patient/family stated (09/11/24 9:45 AM) Dry Weight Obtained Via Standing scale (09/12/24 9:10 AM) Patient/family stated (09/11/24 9:45 AM) Social History Social History Type Response Smoking Status Current every day sm oker; Tobacco user in household: Yes; Other: cutting down !!; Number of years: 25; Total pack years: 8; entered on: 04/18/18 Sex Sex Representation Female (finding) History and physical note * Event Display: History and Physical Hospital Authored Date: * Event Display: History and Physical Hospital Authored Date: Hospital Progress note * Eri Mckeon RN: PERFORM, SIGN, VERIFY Event Display: Progress Note Hospital Authored Date: Patient: SANNA CASTORENA Age: 73 years Sex: Female : 1950 Associated Diagnoses: None Author: Eri Mckeon RN Findings Problem Related to Alteration in Endocrine : Alteration in Endocrine Function/new 09/13/2024 9:00 EST Alteration in Endocrine Related to Other: Left thyroid lobectomy Goals & Outcomes, Endocrine Blood glucose levels will stabilize during hospitalization, Intake & Output will improve & return to baseline, Pt will receive/maintain adequate nutrition status, Pt will resume/maintain adequate cardiac output, Pt will maintain adequate GI/ function appropriate for pt, Pt will resume/maintain adequate hemodynamic status, Pt will tolerate age appropriate diet prior to discharge, Vital signs, electrolytes & blood glucose will stabilize, Weight is stable or increasing to normal levels for pt Interventions, Endocrine Assess/monitor GI/ status, Assess skin turgor, temperature & capillary refill, Maintain IV access, Maintain strict I&O, Teach Pt/caregiver activity instructions, Teach Pt/caregiver pain management strategies, Teach Pt/caregiver signs & symptoms of hypoglycemia, Teach Pt/caregiver signs & symptoms of hyperglycemia, Teach Pt/caregiver use of home glucose monitoring, Teach Pt/caregiver Medic Alert bracelet/Wallet Notification BH Goals/Interventions, Endocrine Yes Endocrine, Problem Start 09/12/2024 18:59 Reviewed Plan with, Endocrine Patient Patient Progression, Endocrine Pt progressing according to plan . Narrative/Incidental P: Alteration in Endocrine I: See above care plan E: Upon assessment patient reports 6/10 pain. Pain well managed with Tylenol, jaw bra, and rest andrepositioning. Patient is alert and oriented to person, place, time, and situation. Patient declines numbness and tingling. Patient denies dizziness. Lung sounds clear on room air. Patient denies shortness of breath. Throat edema noted upon assessment. Circulation, movement, and sensation present in all four extremities. Abdomen is soft, round, and nontender. Bowel sounds present in all four quadrants. Patient passing gas and belching. Patient tolerating regular diet. Patient denies nausea. Last bowel movement 09/11. Patient declines Colace, patient states I usually go every other day, the last time I had one of those I didn't stop pooping for days . Patient independently ambulating aroundthe room and unit approximately 500 feet at a time. Patient steady on her feet. Patient declines past history of falls. Patient voiding clear yellow urine. Patient has anterior neck steri strips opento air, clean, dry, and intact. Bed locked and in lowest position. Call cedillo in reach. . Discharge Information Case Management Discharge Plan : Case Management Discharge Plan Data 09/13/2024 9:54 EST Discharge Level of Care at Discharge Home/Alf/Foster Care * Hiral Herrera: PERFORM Event Display: Progress Note Hospital Authored Date: Patient: ??SANAN CASTORENA ? Age:??73 Years?Sex:??Female?:??1950?? Subjective Feeling well, pain controlled. Tolerating diet. Voice intact. Ambulating and voiding. No fevers, dysphagia, nausea or vomiting Physical Exam Vitals & Measurements T:??97.8?F?? HR:??61??(Peripheral)?? RR:??18?? BP:??164/61?? SpO2:??99%?? HT:??158??cm?? WT:??70.5??kg?? BMI:??28.24? Physical Exam: Constitutional:??In no acute distress, awake, and alert HEENT: Neck incision soft with minimal swelling. Steris c/d/i Respiratory: Non-labored breathing on room air Cardiovascular: Regular rate. No LE edema; SCDs in place. Warm, well-perfused Neurologic:??Alert and oriented x3.??No focal neurological deficits. Moves all extremities spontaneously Assessment/Plan 73YF with suspicious thyroid nodule, FNA cytology noting atypia of undetermined significance, now s/p left thyroid lobectomy (Ibis, 09/12). Recovering well. No hematoma on exam ?? Plan: - Diet - Pain ctrl; tyl/ibu/ice, oxy - Home meds; holding eliquis/cilostazil x3d - Ambulate/SCDs - DC home today ?? Discussed with Dr. Ibis NOWAK [id number]? Intake and Output Intake and Output Results?? This visit (24 hour periods starting at 07:00 EST)? 09/13/24 *?? 09/12/24?? 09/11/24?? Total Summary?Intake mL?? 300?? 240?? --?Output mL?? 100?? 700?? --?Fluid Balance ?? 200?? -460?? --?? Intake (1)?Oral Fluids mL?? 300?? 240?? --?Total?? 300?? 240?? --?? Output (1)?Urine Voided mL?? 100?? 700?? --?Total?? 100?? 700?? --?? Counts (2)?Oral Fluids mL?? 300?? 240?? --?Urine Voided mL?? 100?? 700?? --? * This column has not completed the indicated time period.?? Labs Last 24 Hours No qualifying data available. * Td Baumann MD: PERFORM Event Display: Progress Note Hospital Authored Date: [id number] Attending attestation: Patient??seen and examined by me on date of service, and??all pertinent labs and imaging reviewed. The??patient was discussed with the resident and PA. I agree with the findings and plan as documented in this note. Discharge instructions reviewed at the bedside. Ok to resume ASA81 now. Wait 2 days for anticoagulation. ?? Thank you for allowing me to assist in the care of??this patient.??Please let me??know if??there are??any??questions??or concerns. Thank you??for your time. ?? Td Baumann MD Endocrine and General??Surgery?? * Zaira Duncan RN: PERFORM, SIGN, VERIFY Event Display: Progress Note Hospital Authored Date: [id number] Patient: SANNA CASTORENA Age: 73 years Sex: Female : 1950 Associated Diagnoses: None Author: Zaira Duncan RN Findings Problem Related to Alteration in Endocrine : Alteration in Endocrine Function/new 09/12/2024 22:00 EST Alteration in Endocrine Related to Other: Left thyroid lobectomy Goals & Outcomes, Endocrine Blood glucose levels will stabilize during hospitalization, Intake & Output will improve & return to baseline, Pt will receive/maintain adequate nutrition status, Pt will resume/maintain adequate cardiac output, Pt will maintain adequate GI/ function appropriate for pt, Pt will resume/maintain adequate hemodynamic status, Pt will tolerate age appropriate diet prior to discharge, Vital signs, electrolytes & blood glucose will stabilize, Weight is stable or increasing to normal levels for pt Interventions, Endocrine Assess/monitor GI/ status, Assess skin turgor, temperature & capillary refill, Consider Classifying Machine Operator consult; review recommendations, DVT prophylaxis as ordered, Maintain IV access, Maintain strict I&O, Monitor & document daily weight, Monitor pt's response to IVhydration, Provide info on community resources for education, support, Teach Pt/caregiver activity instructions, Teach Pt/caregiver pain management strategies, Teach Pt/caregiver signs & symptomsof hypoglycemia, Teach Pt/caregiver signs & symptoms of hyperglycemia, Teach Pt/caregiver use of home glucose monitoring, Teach Pt/caregiver Medic Alert bracelet/Wallet Notification BH Goals/Interventions, Endocrine Yes Endocrine, Problem Start 09/12/2024 18:59 Reviewed Plan with, Endocrine Patient Patient Progression, Endocrine Pt progressing according to plan . Nursing Data Integumentary Data. : Integumentary Data. 09/12/2024 22:36 EST Skin Color Normal for ethnicity Skin Temperature Warm Skin Integrity Not intact Integumentary WNL except Neck Skin Abnormality Type: Surgical incision Wound Assessment Activity: Reassessment Surgical Incision Detailed Assessment: Yes Incision Surgical Detail: Unable to visualize Wound Dressing: Open to air Wound Edge: Approximated with steri strips 09/12/2024 22:34 EST Activity Walks occasionally Mobility No limitations . Vital Signs : VITAL SIGNS SECTION 09/12/2024 20:14 EST Temperature 97.9 DegF Temperature Route Oral Pulse Rate 61 bpm Respiratory Rate 19 br/min Systolic Blood Pressure 144 mm Hg H Diastolic Blood Pressure 58 mm Hg Blood pressure sites Arm, right Mean Arterial Pressure 87 mm Hg Pulse Pressure 86 mm Hg Oxygen Saturation 99 % Mode of Delivery (Oxygen) Room air . Evaluation P: Alteration in Endocrine I: Please see interventions listed in care plan(s) above. E: Patient is alert and oriented x4. Denies chest pain and numbness/tingling. No edema noted, +PP and +CMS in all extremities. Lungs are clear on room air and patient denies shortness of breath. Abdomen is soft, round, and non tender. Bowel sounds are present throughout and patient reports passing flatus. Tolerating a regular diet and patient denies nausea and vomiting. Patient reports last bowelmovement 11/19. Voiding clear yellow urine. Anterior neck steri strips, open to air. Neck is soft on palpation. Patient denies difficulty swallowing but reports minor discomfort when swallowing. Patient reports 7/ pain. Medicated with scheduled and PRN medications, see MAR. Ambulating as a standby, steady gait. Patient is resting in bed, wheels locked and in lowest position. Bed alarm is on, call cedillo within reach and patient rings appropriately. . Note * Eri Mckeon RN: PERFORM Event Display: Discharge/Transfer Note Hospital Authored Date: [id number] Nursing Discharge Note Entered On: 09/13/2024 9:55 EST Performed On: 09/13/2024 9:54 EST by Eri Mckeon RN Nursing Discharge Note 2 Discharge Time : 09/13/2024 10:30 EST Eri Mckeon RN - 09/13/2024 10:38 EST Discharge Level of Care at Discharge : Home/Alf/Foster Care Patient Left Unit Via : Wheelchair Patient Accompanied Off Unit with : Responsible adult DC Instructions Provided & Signed by Pt : Yes Patient Understands D/C Instructions : Yes Patient Instructions Discharge Signed : Yes Did Pt have Specialty Bed or Wound Vac : No Eri Mckeon RN - 09/13/2024 9:54 EST * Aissatou MCALLISTER, Andra: PERFORM Event Display: Patient Education/Instruction Authored Date: [id number] Inpatient Adult Discharge Instructions. [address] [address] Name: SANNA CASTORENA : 1950?? Visit: 09/12/2024 08:30?? Current Date: 09/13/2024 09:50 ?? Account: [id number]?? Inpatient Adult Discharge Instructions We would like to thank you for allowing us to assist you with your healthcare needs. The following includes patient education materials and information regarding your injury/illness. Our entire staffstrives to provide an excellent experience for our patients and their families. PLEASE ENSURE YOU FOLLOW-UP PER THE INSTRUCTIONS BELOW! ?? YOUR OPINION IS IMPORTANT TO US! Please complete the survey you may receive by mail or email. Your feedback will be used to make improvements to the healthcare experiences of our patients and their families. Surveys are administered by [employer] ?? If further treatment with your primary care physician or another doctor is recommended, it is important for you to keep the appointment. Call your primary care physician or return to the Emergency Department immediately if your condition worsens, fails to improve, or new symptoms develop. If you need to find a doctor, you can call [facility] Link for a referral at [phone] or toll free at [phone]) or log in to [email or web address].. ?? [facility], in keeping with [facility] guidance, no longer requires face masks for staff, patientsor visitors in most situations. Similiar to time spent indoors at other locations, there is the chance that you were exposed to repiratory viruses during your time with us (such as flu or COVID-19). If you develop symptoms concerning for a viral respiratory infection, please seek testing (and treatment if indicated) from your medical provider or home test kit. ?? You can view and manage your care through the patient portal or by using a health care dl of your choosing. [employer] is a website that allows you to securely view your medical information including your hospital discharge summary, office visit summaries, medications and follow-up visits. You can also request appointments, renew medications, and request access to your medical information using a health care dl of your choosing, or just ask a question. You can enroll at [email or web address] or register during your next office visit. You have been discharged from [facility], Patient Care Unit: SW6??. If you have any questions regarding these instructions, including results of studies pending, afteryou leave, please call us and we will be happy to assist you 16/05. [facility] Your Care Team Attending Physician Td Baumann MD?? Consulting Providers Td Baumann MD?? Discharging Providers Hiral Herrera Tests Performed Below is a partial list of the tests performed during your hospitalization. You may have had other tests and procedures not included in this list. Please discuss all test results with your provider. GLUCOSE POC Glucose POC?? Pathology Tissue Request ()?? Primary Care Provider Lance Osorio MD? Advance Directive Health Care Proxy on File Yes - Health Care Proxy Discharge Vitals Temperature: 97.8 DegF Height: 158 cm Pulse Rate: 75 bpm Weight: 70.5 kg Respiratory Rate: 18 br/min Body Mass Index:??28.24 kg/m2??High Systolic Blood Pressure:??164 mm Hg??High Body surface area: 1.76 Systolic Blood Pressure:??164 mm Hg??High ?? Diastolic Blood Pressure: 61 mm Hg ?? Diastolic Blood Pressure: 61 mm Hg ?? Oxygen Saturation: 99 % ?? Studies Pending All studies ordered during this hospital stay have been completed unless listed below. Please discuss all pending results with your provider listed above in these instructions. ?? Pathology Tissue Request ()?? What to do next Instructions From Your Doctor Postoperative Instructions for Thyroidectomy and Parathyroidectomy ?? You have undergone endocrine surgery with Dr. Baumann. The instructions here should help answer common questions and guide you through the first steps of healing and recovery. ?? Activity: Get plenty of rest after surgery, however we would still like you to be active and walk several times a day.?? Increase your walking distance as you feel able.?? Continue with light activities for 1 to 2 weeks then ease yourself back into regular activities.?? No strenuous exercise until 4 weeks after surgery.? Driving: No driving until you are off pain medications and feel comfortable turning your head and neck [id number]. ?? Medication Instructions: ?? -Tylenol: 1000mg every 6 hours for the first 2 days after surgery. After the first few days you cancontinue to take Tylenol as needed for pain.?? Opioid pain medication: Oxycodone, this is typically only needed for a few days after surgery. TakeTylenol prior to taking the opioid pain medication. Do not take it if not needed.? -Stool softener: Opioid pain medications can cause constipation so drink plenty of fluids. Take Colace or MiraLAX twice a day when on opioids to prevent constipation. If you don't have a bowel movement in 2-3 days take Milk of Magnesia 30mg twice a day until you have a bowel movement. ?? -Resume aspirin today ?? -Continue to hold Eliquis and??cilostazil. You may resume these medications on Tuesday? Incision care: For the first two days after surgery keep your neck elevated and apply ice to minimize swelling. Swelling is normal after surgery, and it will take several weeks for the neck to completely flatten out again. ?? -Showering: it is okay to shower and get your incision wet 2 days after surgery. Water can run overthe incision and just pat the incision dry afterwards. No saunas, hot tubs, or soaking the incisionuntil one month after surgery.? -Steri-strips: may be removed from your incision by gently pealing them off 10 days after surgery. ?? What to watch for: ?? If you develop fever, chills, increased pain, bleeding, increased swelling, increased redness or pus around the surgical site please call the office at [phone]. After hours or on weekends call [phone] and have the on-call physician paged. ?? You should have a follow-up appointment scheduled approximately 2 weeks after your surgery date. Please call the office at [phone] with any questions or concerns. ? Orders? 09/13/24 9:04:00 EST?? Prescriptions??, ??09/13/24 9:04:00 EST?? Scheduled Follow-Up Appointments Tuesday 10:40 AM EST ?? With: Lance Osorio MD Where: [facility] [address] [place] [address]- Status: Pending Tuesday 9:30 AM EST ?? With: Td Baumann MD Where: [facility] General Surgery [address] [place] [address] Drive [address] [place] [address]- Status: Pending Discharge Medications SANNA CASTORENA :1950 Visit Date:09/12/2024 Medications: Please continue your medications until treatment is completed or stopped by your provider. Medications not listed below should be discontinued. Discuss any questions related to medications with your provider. What How Much When Instructions Next Dose New Acetaminophen (Tylenol Extra Strength 500 mg oral tablet) 2 tab(s) Oral 3 times a day as needed for for pain Pickup at [facility] 3 09/13 12pm New Docusate (Colace sodium 100 mg oral capsule) 1 capsule Oral Twice a day as needed for for constipation Refills: 1 with plenty of water ?? Pickup at [facility] 3 09/13 9pm New Oxycodone (oxyCODONE 5 mg oral tablet) 1 tab(s) Oral Every 6 hours as needed for for pain The patient may fill in an amount not to exceed the recommended full quantity indicated. ?? Pickup at [facility] 3 as needed Changed Cilostazol (cilostazol 50 mg oral tablet) 1 tab(s) Oral Twice a day Ok to resume on Tuesday ?? 09/15 9am Unchanged amiODARONE (amiodarone 200 mg oral tablet) 1 tab(s) Oral Daily 09/14 9am Unchanged apixaban (Eliquis 5 mg oral tablet) 1 tab(s) Oral Twice a day Ok to resume on Tuesday ?? 09/15 9am Unchanged Aspirin (aspirin 81 mg oral delayed release tablet) 81 Milligram Oral Daily 09/14 9am Unchanged Durable Medical Equipment (Accu-Chek Dianna Test Strips) See instructions use daily ??BSs a re unstable ?? as directed Unchanged Durable Medical Equipment (One Touch Ultra 2 Glucose Meter) See instructions aodm 250.00 use daily ?? as directed Unchanged Durable Medical Equipment (One Touch Ultra Test Strips) See instructions one touch ultra , aodm 250,00 use daily ?? as directed Unchanged Durable Medical Equipment (One Touch UltraSoft Lancets) See instructions aodm 250.00 ?? as directed Unchanged Lisinopril (lisinopril 5 mg oral tablet) 1 tab(s) Oral Daily Duration: 90 Days 09/14 9am Unchanged Metoprolol (metoprolol succinate 25 mg oral capsule, extended release) 1 capsule Oral Daily 09/14 9am Unchanged Multivitamin (Multivitamin Tablet) 1 tab(s) Oral Daily 09/14 9am Unchanged Rosuvastatin (rosuvastatin 40 mg oral tablet) 1 tab(s) Oral Daily 09/14 9am Pharmacy Information [facility] 3: [address], [place] [id number] [phone] Prescription Given During Visit Acetaminophen (Tylenol Extra Strength 500 mg oral tablet) - 2 tablet = 1,000 mg, By Mouth, 3 times a day, # 24 tablet, 0 Refills, [place] [address] [id number]?? Docusate (Colace sodium 100 mg oral capsule) - 1 capsule = 100 mg, By Mouth, 2 times a day, # 20 capsule, 1 Refills, with plenty of water, [place] [address] [id number]?? Oxycodone (oxyCODONE 5 mg oral tablet) - 1 tablet = 5 mg, By Mouth, Every 6 hours, # 5 tablet, 0 Refills, The patient may fill in an amount not to exceed the recommended full quantity indicated., [place] [address] [id number]?? Laboratory Results Below is a partial list of the most recent Laboratory test results done prior to this discharge. You may have had other tests and procedures not included in this list. Please discuss all test resultswith your provider. GLUCOSE POC (09/12/2024) ???Glucose, POC - 163 mg/dL You will be contacted within 72 hours with your results. Allergies (NKA means No Known Allergies) Zocor??(very severe myalgias took 6 weeks to resolve) egg-containing compound Problems Active Problems??(10) Afib?? CAD (coronary artery disease)?? Glucose intolerance?? Hypercholesterolemia?? Hyperlipidemia?? Hypertension?? Menopause?? Osteopenia ??January 2009 -3,?? S/P CABG x 3?? Type 2 diabetes mellitus?? Education Materials Below is the list of Educational Leaflet Providered with your Discharge Instructions. Valuables and Belongings I fully understand and agree that [facility] accepts no responsibility for all my personal property including clothing, toilet articles, radios, jewelry, dentures, hearing aids, rings, money, or any other property that is in my possession or is brought to me after admission. I understand certain valuables may be placed in a hospital safe for a short period of time. I understand that the hospital is not liable for loss or damage due to accident, fire, or other natural occurrence while said property is in the safe. I accept full responsibility for any personal property that I keep with me, and will not hold the hospital responsible in case of loss or disappearance. I acknowledge that i have been encouraged to send valuables and belongings home. ?? Review of Valuable and Belonging List: With patient Disposition of Belongings: Other: under stretcher Date for Pt to Sign Valuables/Belongings: 09/12/24 18:10:00 ?? Other Discharge Information ? Pulmonary Rehab Status?? Pulmonary Rehab Discharge Status?? Respiratory Rate: 18 br/min ? Common Emergency Awareness Tips IS IT A STROKE? Act FAST and Check for these signs: FACE Does the face look uneven? ARM Does one arm drift down? SPEECH Does their speech sound strange? TIME Call at any sign of stroke ?? Heart Attack Signs Chest discomfort: Most heart attacks involve discomfort in the center of the chest and lasts more than a few minutes, or goes away and comes back. It can feel like uncomfortable pressure, squeezing, fullness or pain. Discomfort in upper body: Symptoms can include pain or discomfort in one or both arms, back, neck, jaw or stomach. Shortness of breath: With or without discomfort. Other signs: Breaking out in a cold sweat, nausea, or lightheaded. Remember, MINUTES DO MATTER. If you experience any of these heart attack warning signs, call to get immediate medical attention! ?? Smoking can increase your chances of developing chronic health problems and can cause harmful effects to other family members in your house. If you smoke, you are strongly encouraged to quit. Please call [facility] [employer] Link at [phone] or [phone]) or log in to [email or web address] for referrals to smoking cessation programs. ?? 406 Suicide & Crisis Lifeline is available 16/05 if you or someone you know needs to find a reason to keep living. By calling 686 you'll be connected to a skilled, trained counselor at a crisis center in your area. INPATIENT DISCHARGE INSTRUCTIONS SIGNATURE PAGE SANNA CASTORENA Location:[facility] Registration Date and Time:09/12/2024 08:30 EST Primary Care Physician: Lance Osorio MD, Attending Physician: Td Baumann MD, SANNA REYES, have received the above patient education materials/instructions and have verbalized understanding. If ambulance or transport services are being used I further acknowledge being given a choice of service. ?? If you need to contact me, please call me at this number: . Patient/Client Technical Support Associate Name: Patient/Client Technical Support Associate Signature: Relationship to Patient: Witness Name/Signature: Date: Patient Care team information Care Team Personnel Name: Omaira Gomez Position: [facility] RN Supv Member Role: Primary Care Nurse Name: Tanisha Flores RN Position: S RN Member Role: Primary Care Nurse Name: Ryne Carlson RN Position: [facility] RN Member Role: Primary Care Nurse Name: Lance Osorio MD Position: S Physician - Primary Care Member Role: PCP Address: [address] [place] [address] Adult & [place] [address]- Telecom: Name: Disha Hugo RN Position: S RN Member Role: Primary Care Nurse Name: Kathe Damon RN Position: S RN Member Role: Primary Care Nurse Name: Sofie Cosme RN Position: S RN Member Role: Primary Care Nurse Name: Katy Young RN Position: S RN Member Role: Primary Care Nurse Name: Ashley Montalvo RN Position: [facility] RN Member Role: Primary Care Nurse Care Team Related Persons Name: KELLCAROL Insurance Providers Guarantor name: SANNA CASTORENA [employer] Plan Information #: 1 Payer: [facility] POS Member Number: [id number] Policy Number: NA Group Number: NA Health Plan Information #: 2 Payer: [facility] POS Member Number: [id number] Policy Number: NA Group Number: NA
--- OUTSIDE RECORDS SUMMARY | 2024-10-02 17:12 | XMS_ITS | Continuity of Care Document ---
Author Organization [facility] Address [address] [place] [address]- Care Team Providers Care Radio Time Salesperson Name Role Phone Jo HANLEY, Lance Mix Primary Care Physician Encounter [facility] Date(s): 08/21/24 - 09/20/24 [facility] [address] [place] [address]- Encounter Type: Triage Allergies, Adverse Reactions, Alerts Substance Criticality Severity Reaction Reaction Severity Status Zocor very severe myalgias took 6 weeks to resolve Active egg-containing compound Active Immunizations Given and Recorded Vaccine Date Status Refusal Reason influenza virus vaccine, inactivated 07/31/24 Isidro rded influenza virus vaccine, inactivated 07/18/23 Isidro rded influenza virus vaccine, inactivated 07/19/22 Isidro rded influenza virus vaccine, inactivated 07/06/21 Isidro rded influenza virus vaccine, inactivated 08/01/19 Isidro rded influenza virus vaccine, inactivated 08/30/18 Isidro rded influenza virus vaccine, inactivated 07/24/18 Isidro rded influenza virus vaccine, inactivated 11/15/17 Isidro rded influenza virus vaccine, inactivated 07/25/17 Isidro rded SARS-CoV-2(COVID-19)mRNA-LNP vac([id number]) 07/31/24 Recorded SARS-CoV-2(COVID-19)mRNA-LNP vac([id number]) 07/18/23 Recorded RSV vaccine preF3, recombinant 07/18/23 Recorded tetanus-diphtheria toxoids (Td) 02/10/23 Given tetanus-diphtheria toxoids (Td) 03/15/06 Given [id number] 12y+ bivalent booster vax 08/04/22 Recorded SARS-CoV-2 [...] 3 11/18/09 Given 1Result Comment: done at [facility] 2Result Comment: [01/05/2018] [id number] 3Admin Note: info sheet given Medications Accu-Chek [...] Maintenance, 08/31/23 2:29:00 PM EST, EC Tablet, [facility] 3, Partial fill upon patient request if [...] 9:03:00 AM EST, Route to Pharmacy Electronically, [facility] 3, Partial fill upon patient request if [...] Refills, Maintenance, 08/21/24 11:50:00 AM EDT, Tablet, [facility]/pharmacy #[id number], Partial fill upon patient request if the prescription is for a schedule II opioid drug., 158, cm, 07/09/24 10:47:00 EDT, Height, 73.1, kg, 06/19/24 10:20:00 EDT, DryWeight Start Date: 08/21/24 Status: Ordered Quantity: 180.0 Unit: tablet Repeat number: 4 lisinopril 5 mg oral tablet 5 mg, 1, tablet, By Mouth, Daily, # 90 tablet, Refills 1, Tot. Refills 1, Maintenance, 09/14/24 1:50:00 PM EST, Route to Pharmacy Electronically, [facility]/pharmacy #[id number], Partial fill upon patient requestif the prescription is for a schedule II opioid drug., 158, cm, 09/13/24 4:54:00 EST, Height, 70.5,kg, 09/12/24 18:24:00 EST, Dry Weight Start Date: 09/14/24 Stop Date: 03/13/25 Status: Ordered Quantity: 90.0 Unit: tablet Repeat number: 2 metoprolol succinate 25 mg oral capsule, extended [...] Refills, Maintenance, 06/14/24 12:06:00 PM EDT, Tablet, [facility]/pharmacy #[id number], this is an increase, 158, cm, 05/15/24 14:53:00 EDT, Height, 76.25, kg, 09/09/23 9:49:00 EST, Dry Weight Start Date: 06/14/24 Status: Ordered Quantity: 90.0 Unit: tablet Repeat number: 4 Tylenol Extra Strength 500 mg oral tablet 2 tablet = 1,000 mg, By Mouth, 3 times a day, PRN for pain, # 24 tablet, 0 Refills, Maintenance, 09/13/24 9:03:00 AM EST, Tablet, [facility], Partial fill upon patient request if [...] Menopause Confirmed 1994 Active Osteopenia January 2009 -.3, Confirmed Active Type 2 diabetes mellitus Confirmed [...] Care Team Personnel Name: Omaira Gomez Position: [facility] RN Supv Member Role: Primary Care Nurse Name: Tanisha Flores RN Position: S RN Member Role: Primary Care Nurse Name: Ryne Carlson RN Position: [facility] RN Member Role: Primary Care Nurse Name: Lance Osorio MD Position: [facility] Physician - Primary Care Member Role: PCP Address: [address] [place] [address] Adult & Pediatric Medicine [address] Telecom: Name: Disha Hugo RN Position: S RN Member Role: Primary Care Nurse Name: Kathe Damon RN Position: S RN Member Role: Primary Care Nurse Name: Sofie Cosme RN Position: S RN Member Role: Primary Care Nurse Name: Katy Young RN Position: S RN Member Role: Primary Care Nurse Name: Ashley Montalvo RN Position: S RN Member Role: Primary Care Nurse Care Team Related Persons Name: SHAWNMAXINECAROL Insurance Providers Guarantor name: SANNA CASTORENA [facility] Plan Information #: 1 Payer: [facility] POS Member Number: NA Policy Number: NA Group Number: NA
--- OUTSIDE RECORDS SUMMARY | 2024-10-02 17:13 | XMS_ITS | Continuity of Care Document ---
Author Organization [facility] Address [address] [place] [address]- Care Team Providers Care Environmental Protection Economist Name Role Phone Lance Osorio MD Primary Care Physician Encounter [facility] Date(s): 09/18/24 - 09/25/24 [facility] [address] [place] [address]- Attending Physician: Lance Osorio MD Encounter Type: Office Visit Allergies, Adverse Reactions, Alerts Substance Criticality Severity [...] virus vaccine, inactivated 07/25/17 Isidro rded SARS-CoV-2(COVID-19)mRNA-LNP vac([id number]) 07/31/24 Recorded SARS-CoV-2(COVID-19)mRNA-LNP vac([id number]) 07/18/23 Recorded RSV vaccine preF3, recombinant 07/18/23 Recorded tetanus-diphtheria toxoids (Td) 02/10/23 Given tetanus-diphtheria toxoids (Td) 03/15/06 Given [id number] 12y+ bivalent booster vax 08/04/22 Recorded SARS-CoV-2 [...] 3 11/18/09 Given 1Result Comment: done at [facility] 2Result Comment: [01/05/2018] [id number] 3Admin Note: info sheet given Medications Accu-Chek [...] Maintenance, 08/31/23 2:29:00 PM EST, EC Tablet, [facility] 3, Partial fill upon patient request [...] 9:03:00 AM EST, Route to Pharmacy Electronically, [facility] 3, Partial fill upon patient request [...] Refills, Maintenance, 08/21/24 11:50:00 AM EDT, Tablet, [facility]/pharmacy #[id number], Partial fill upon patient request [...] 1:50:00 PM EST, Route to Pharmacy Electronically, [facility]/pharmacy #[id number], Partial fill upon patient requestif [...] Refills, Maintenance, 06/14/24 12:06:00 PM EDT, Tablet, [facility]/pharmacy #[id number], this is an increase, 158, cm, 05/15/24 14:53:00 EDT, Height, 76.25, kg, 09/09/23 9:49:00 EST, Dry Weight Start Date: 06/14/24 Status: Ordered Quantity: 90.0 Unit: tablet Repeat number: 4 Tylenol Extra Strength 500 mg oral tablet 2 tablet = 1,000 mg, By Mouth, 3 times a day, PRN for pain, # 24 tablet, 0 Refills, Maintenance, 09/13/24 9:03:00 AM EST, Tablet, [facility], Partial fill upon patient request [...] Range]: 1 2 3 Height 158 cm (09/18/24 11: AM) 158 cm (09/18/24 11: AM) 158 cm (09/18/24 10:50 AM) Weight 74.3 kg (09/18/24 10:50 AM) Oxygen Saturation [94-100 %] 97 % (09/18/24 10:50 AM) Pulse Rate [55-90 bpm] 96 bpm *H* (09/18/24 10:50 AM) Body Mass Index [18.5-24.99 kg/m2] 29.76 kg/m2 *H* (09/18/24 10:50 AM) Blood Pressure [90-138/55-84 mm Hg] 115/64mm Hg (09/18/24 11: AM) 140/70mm Hg *H* (09/18/24 11: AM) 146/76mm Hg *H* (09/18/24 10:50 AM) Mode of Delivery (Oxygen) Room air (09/18/24 10:50 AM) Blood pressure sites Arm, left (09/18/24 10:50 AM) Dry Weight 74.3 kg (09/18/24 10:50 AM) Weight Obtained Via Standing scale (09/18/24 10:50 AM) Social History Social History Type Response Smoking Status Former smoker, quit more than 30 days ago; Tobacco user in household: Yes; Other: Quite 08/11/2023; Number of years: 25; Total pack years: 8; entered on: 09/25/24 Sex Sex Representation Female (finding) Note * Carrie Carranza: PERFORM Event Display: Patient Education/Instruction Authored Date: [id number] Ambulatory Adult Visit Summary [facility] [address] [place] [address] Name: SANNA CASTORENA : 1950?? Visit: 09/18/2024 10:26?? Ambulatory Visit Instructions ?? Your Care Team Primary Care Provider Lance Osorio MD? This Visit Provider Lance Osorio MD Your Diagnosis CAD (coronary artery disease) Type 2 diabetes mellitus Hypertension Vitals Signs Pulse Rate:??96 bpm??High Height: 158 cm Systolic Blood Pressure: 115 mm Hg Weight: 74.3 kg Diastolic Blood Pressure: 64 mm Hg Body Mass Index:??29.76 kg/m2??High Oxygen Saturation: 97 % Body surface area: 1.81 What to do next Scheduled Follow-Up Appointments Tuesday 9:30 AM EST ?? With: Td Baumann MD Where: [address] [place] [address]- Status: Pending Follow-Up Appointments Follow Up with??Lance Osorio MD When:??01/15/2025 10:20 AM EDT Where: [address] [facility] [place] [address]- Future Orders AST - Once, *Est. 02/01/24 +/- 7 days, Future Order?? Lipid Panel - Once, FAST ??for ??12 hours ?? before going ??to ??the ??lab, *Est. 02/01/24 +/- 7 days, Single or Recurring Future Order?? Medications The list below reflects the information in our records and provided by you today along with any changes made during this visit. Please continue your medications until treatment is completed or stopped by your provider. If this is different from the information you have or there are other questions,please contact the prescribing provider. What How Much When Instructions Unchanged Acetaminophen (Tylenol Extra Strength 500 mg oral tablet) 2 tab(s) Oral 3 times a day as needed for for pain Unchanged amiODARONE (amiodarone 200 mg oral tablet) 1 tab(s) Oral Daily Unchanged apixaban (Eliquis 5 mg oral tablet) 1 tab(s) Oral Twice a day Unchanged Aspirin (aspirin 81 mg oral delayed release tablet) 81 Milligram Oral Daily Unchanged Cilostazol (cilostazol 50 mg oral tablet) 1 tab(s) Oral Twice a day Unchanged Docusate (Colace sodium 100 mg oral capsule) 1 capsule Oral Twice a day as needed for for constipation with plenty of water ?? Unchanged Durable Medical Equipment (Accu-Chek Dianna Test Strips) See instructions use daily ??BSs a re unstable ?? Unchanged Durable Medical Equipment (One Touch Ultra 2 Glucose Meter) See instructions aodm 250.00 use daily ?? Unchanged Durable Medical Equipment (One Touch Ultra Test Strips) See instructions one touch ultra , aodm 250,00 use daily ?? Unchanged Durable Medical Equipment (One Touch UltraSoft Lancets) See instructions aodm 250.00 ?? Unchanged Lisinopril (lisinopril 5 mg oral tablet) 1 tab(s) Oral Daily Duration: 90 Days Unchanged Metoprolol (metoprolol succinate 25 mg oral capsule, extended release) 1 capsule Oral Daily Unchanged Multivitamin (Multivitamin Tablet) 1 tab(s) Oral Daily Unchanged Rosuvastatin (rosuvastatin 40 mg oral tablet) 1 tab(s) Oral Daily ?? What How Much When Comments Stop Taking Oxycodone (oxyCODONE 5 mg oral tablet) 1 tab(s) Oral Every 6 hours as needed for for pain The patient may fill in an amount not to exceed the recommended full quantity indicated. ?? Medications and Immunizations Administered Medications Given During Visit No medications given during this visit.?? Allergies (NKA means No Known Allergies) Zocor??(very severe myalgias took 6 weeks to resolve) egg-containing compound Common Emergency Awareness Tips IS IT A [...] are strongly encouraged to quit. Please call [facility] Link at [phone] or [phone]) or log in to [email or web address] for referrals to smoking cessation programs. ?? The National Suicide Prevention Hotline is available 16/05 if you or someone you know needs to find a reason to keep living. By calling 1-496-850-YouWeb (1923) you'll be connected to a skilled, trained counselor at a crisis center in your area. [facility] Link Portal You can view and manage your care through the patient portal or by using a health care dl of your choosing. [employer] is a website that allows you to securely view your medical information including your hospital discharge summary, office visit summaries, medications and follow-up visits. You can also request appointments, renew medications, and request access to your medical information using a health care dl of your choosing, or just ask a question. You can enroll at [email or web address] or register during your next office visit. [facility], in keeping with [facility] guidance, no longer requires face [...] medical provider or home test kit. ?? Disclaimer: The information provided is of a general nature and is intended to be used in conjunction with the recommendations and advice of your health care practitioner. Every effort has been made to ensure that the information provided is accurate and complete at the time it is provided to you however, as your needs change, or, as new information becomes available, different or additional instructions may be required. ?? If you have questions, please consult with your primary care provider or pharmacist, as appropriate. This information is not intended to serve as substitution for assessment and evaluation by a qualified health care provider. If you do not have a primary care provider, you may find a [facility] provider by calling [facility] Link [facility] at [phone]. Patient Care team information Care Team Personnel Name: Omaira Gomez Position: [facility] RN Supv Member Role: Primary Care Nurse Name: Tanisha Flores RN Position: S RN Member Role: Primary Care Nurse Name: Ryne Carlson RN Position: [facility] RN Member Role: Primary Care Nurse Name: Lance Osorio MD Position: [facility] Physician - Primary Care Member Role: PCP Address: [address] [place] [address] Adult & Pediatric Medicine [address] Telecom: Name: Disha Hugo RN Position: [...] Care Nurse Care Team Related Persons Name: CAROL CASTORENA Insurance Providers Guarantor name: SANNA CASTORENA Health Plan Information #: 1 [facility] Member Number: [id number] Policy Number: NA Group Number: NA Health Plan Information #: 2 Payer: [facility] POS Member Number: [id number] Policy Number: NA Group Number: NA
--- OUTSIDE RECORDS SUMMARY | 2024-10-02 17:13 | XMS_ITS | Continuity of Care Document ---
Author Organization [facility] As [address] [place] [address]- Care Team Providers Care Reverse Unit Operator Fisherman Name Role Phone Jo HANLEY, Lance Mix Primary Care Physician Encounter [facility] Date(s): 06/27/24 - 09/20/[address] [place] [address]- Attending Physician: Not on Staff, Attending MD Encounter Type: Pre Office Visit Allergies, Adverse Reactions, Alerts Substance [...] virus vaccine, inactivated 07/25/17 Isidro rded SARS-CoV-2(COVID-19)mRNA-LNP vac([id number]) 07/31/24 Recorded SARS-CoV-2(COVID-19)mRNA-LNP vac([id number]) 07/18/23 Recorded RSV vaccine preF3, recombinant 07/18/23 Recorded tetanus-diphtheria toxoids (Td) 02/10/23 Given tetanus-diphtheria toxoids (Td) 03/15/06 Given [id number] 12y+ bivalent booster vax 08/04/22 Recorded SARS-CoV-2 [...] 3 11/18/09 Given 1Result Comment: done at [facility] 2Result Comment: [01/05/2018] [id number] 3Admin Note: info sheet given Medications Accu-Chek [...] Maintenance, 08/31/23 2:29:00 PM EST, EC Tablet, [facility], Partial fill upon patient request [...] 9:03:00 AM EST, Route to Pharmacy Electronically, [facility], Partial fill upon patient request [...] Refills, Maintenance, 08/21/24 11:50:00 AM EDT, Tablet, [facility]/pharmacy #[id number], Partial fill upon patient request [...] 1:50:00 PM EST, Route to Pharmacy Electronically, [facility]/pharmacy #[id number], Partial fill upon patient requestif [...] Refills, Maintenance, 06/14/24 12:06:00 PM EDT, Tablet, [facility]/pharmacy #[id number], this is an increase, 158, cm, 05/15/24 14:53:00 EDT, Height, 76.25, kg, 09/09/23 9:49:00 EST, Dry Weight Start Date: 06/14/24 Status: Ordered Quantity: 90.0 Unit: tablet Repeat number: 4 Tylenol Extra Strength 500 mg oral tablet 2 tablet = 1,000 mg, By Mouth, 3 times a day, PRN for pain, # 24 tablet, 0 Refills, Maintenance, 09/13/24 9:03:00 AM EST, Tablet, [facility], Partial fill upon [...] Care Team Personnel Name: Omaira Gomez Position: [facility] RN Supv Member Role: Primary Care Nurse Name: Tanisha Flores RN Position: S RN Member Role: Primary Care Nurse Name: Ryne Carlson RN Position: [facility] RN Member Role: Primary Care Nurse Name: Lance Osorio MD Position: [facility] Physician - Primary Care Member Role: PCP Address: [address] [place] [address] Adult [place] [address]- Telecom: Name: Disha Hugo RN Position: S [...] CAROL CASTORENA Insurance Providers Guarantor name: [facility] Information #: 1 Payer: [facility] POS Member Number: [id number] Policy Number: NA Group Number: NA Health Plan Information #: 2 Payer: [facility] POS Member Number: [id number] Policy Number: NA Group Number: NA
== END 2024-09-26 10:24 | disposition home or self-care (01) ==
PROVIDERS: PCP Internal Medicine; Visit Provider Internal Medicine
DX: I25.10 Atherosclerotic heart disease of native coronary artery without angina pectoris (principal); I48.0 Paroxysmal atrial fibrillation; I42.9 Cardiomyopathy, unspecified
CPT/HCPCS: 93010; 99214

== ENCOUNTER → 2024-09-26 09:35 | Outpatient (BNVA) | payer OTHER, SELFPAY | PROVIDERS: PCP Internal Medicine; Visit Provider Internal Medicine | DX: I25.10 Atherosclerotic heart disease of native coronary artery without angina pectoris (principal); I48.0 Paroxysmal atrial fibrillation; I42.9 Cardiomyopathy, unspecified; Z87.891 Personal history of nicotine dependence | CPT/HCPCS: 93005 ==

== ENCOUNTER 2024-12-27 09:32 | Outpatient (AMB) | payer OTHER, SELFPAY ==
--- NOTE | 2024-12-27 09:51 | MHC.OFFVIS ---
Vital Signs 12/27/24 09:53 Height 5 ft 2 in Weight 167 lb 1.766 oz BMI 30.6 BP 120/72 Blood Pressure Location Lt brachial Position Sitting Pulse 73 Pulse Source Monitor Intake Visit Reasons: 3 mth w/ ekg Steam Pan Sponger Required: No Accompanied by: Self / Same As Patient Allergies simvastatin Adverse Reaction (Intermediate, Verified 03/23/24 12:30) Muscle Pain Medication List - Last Reconciled 12/27/24 by Chris Mendiola MD amiodarone 100 mg PO DAILY apixaban (Eliquis) 5 mg PO BID cilostazol 50 mg PO BID lisinopril 5 mg PO DAILY metoprolol succinate ER (Toprol XL) 25 mg PO DAILY rosuvastatin 40 mg PO DAILY HPI Comments Details: Kelsie returns for follow-up regarding atrial fibrillation and coronary artery disease. In 2023, she underwent cardioversion. Remains on a small dose of amiodarone. Overall, she states she feels well. Few months back, she underwent some thyroid surgery but details not clear. Will need to get those records. Otherwise, history of coronary disease and that led to bypass surgery in 2022. No anginal-type symptoms. 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 Father No problems noted. Social History Alcohol intake: current Alcohol intake frequency: holidays/special occasions only Alcohol type: wine Patient Tobacco Use Status: Former Tobacco user Years Smoked: 20 +/- Review of Systems Const Denies chills, Denies fatigue, Denies fever(s), Denies frequent falls, Denies weakness, Denies weight gain and Denies weight loss ENT Denies dizziness Card Denies chest pain, Denies leg edema, Denies lightheadedness, Denies palpitations, Denies dyspnea and Denies dyspnea on exertion Resp Denies cough, Denies dyspnea and Denies dyspnea on exertion GI Denies hematochezia Musc Denies abnormal gait, Denies muscle weakness, Denies numbness, Denies radiating pain into limb and Denies tingling Neuro Denies abnormal gait, Denies dizziness, Denies frequent falls, Denies numbness, Denies tingling and Denies weakness Endo Denies fatigue and Denies palpitations Physical Exam Vital Signs: Last Vital Signs Pulse 73 12/27/24 09:53 BP 120/72 12/27/24 09:53 BMI result Body Mass Index 30.6 Const General: comfortable and no acute distress Orientation/consciousness: patient oriented x3 HEENT Other: Unremarkable Head: Yes normal to inspection Neck Neck: Yes normal visual inspection Chest Chest palpation & inspection: normal inspection of the chest Resp Auscultation: clear to auscultation bilaterally Cardio Palpation: normal PMI Heart sounds: S1 normal heart sound present, S2 normal heart sound present, no gallops, no murmurs and no rubs GI Palpation (GI): Soft to palpation Back/Spine/Pelvis Other: unremarkable Skin General skin exam: no rashes or lesions noted Neuro General: patient oriented x3 Extrem General: Yes normal to inspection Psych Mental Status: mental status grossly normal Office Procedures EKG Details: EKG with underlying sinus rhythm at 73/Min; rightward axis; cannot exclude old anterior infarct; nonspecific ST-T changes; borderline prolonged IN at 208 milliseconds; [place]. [id number], Complete Assessment & Plan Assessment & Plan (1) Atherosclerotic cardiovascular disease: Code(s): I25.10 - Atherosclerotic heart disease of [place] coronary artery without angina pectoris Category: Medical Plan: Status post coronary bypass. Clinically, no angina. Last LDL from July 91 mg/dL. Triglycerides 86 mg/dL. She is already on rosuvastatin 40 mg daily. Possibly add Zetia but she wants to discuss with PCP. (2) PAF (paroxysmal atrial fibrillation): Code(s): I48.0 - Paroxysmal atrial fibrillation Category: Medical Plan: Status post cardioversion. On low-dose beta-blockers/amiodarone. May stop amiodarone and start rather Multaq. If she cannot afford that, then decrease amiodarone 100 mg 3 times a week and follow thyroid. Will need to get records of thyroid surgery that she is describing. Follow-up EKGs for QT interval if any interaction with cilostazol. (3) Cardiomyopathy: Code(s): I42.9 - Cardiomyopathy, unspecified Category: Medical Plan: Echocardiogram shows mild cardiomyopathy with an LVEF of 45-50%. Could be related to coronary disease as well as atrial fibrillation. Clinically, no heart failure symptoms or signs. Repeat echocardiogram denied by insurance. Medications: New dronedarone (Multaq) must administer with a meal/food 400 mg PO BID 180 tabs 1RF 3 months Coding Level of Care Code Est Pt Level 4 (37804) Complex EM visit Add On G2211 Diagnoses Atherosclerotic cardiovascular disease I25.10 PAF (paroxysmal atrial fibrillation) I48.0 Cardiomyopathy I42.9 CPT Codes EKG - CPT: 86622-[id number], Complete ([id number])
[2024-12-27 09:53] VITALS: BP 120/72; PULSE 73; BMI 30.6
--- OUTSIDE RECORDS SUMMARY | 2024-12-27 10:48 | XMS_ITS ---
Author Organization [facility] Address [address] [place] [address] Care Team Providers Care Soft Shoe Dancer Name Role Phone SUDHIR VEE Primary Care Provider KEMAR Martinez Unavailable [phone] Allergies Allergen (clinical drug ingredient) Drug/Non Drug Allergy documented on EMR Reaction Allergy Type Onset Date Status simvastatin Zocor muscle pain Drug Allergy Act barbie REASON FOR VISIT 6 M0NTH F/U Medications Medication SIG (Take, Route, Frequency, Duration) Notes Start Date End Date Status Amiodarone HCl 200 MG Oral for 90 Days Active Lisinopril 5 MG 1 tablet Orally Once a day Active Metoprolol Tartrate 25 MG 1 tablet with food Oral Once a day for 90 days Active Eliquis 5 MG TAKE 1 TABLET BY MANE TH TWICE A DAY Oral for 90 Days Active Rosuvastatin Calcium 20 MG 1 capsule Orally Active Vitamin D 25 MCG (1000 UT) 1 tablet Oral ly Once a day for 30 day(s) Active Aspir-81 Active Social History Tobacco Use: Social History Observation Description Date Details (start date - stop date) Former Smoker NA - NA Tobacco Use/Smoking Question Answer Notes Are you a former smoker How long has it been since you last smoked? 3-6 months Additional Findings: Tobacco Non-User Ex-light c igarette smoker (1-9/day) Alcohol Screen (Audit-C) Question Answer Notes Did you have a drink contain ing alcohol in the past year? Yes How often did you have a dri nk containing alcohol in the past year? 2 to 3 times a week (3 points) How many drinks did you have on a typical day when you were drinking in the past year? 1 or 2 drinks (0 point) How often did you have 6 or more drinks on one occasion in the past year? Never (0 point) Points 3 Interpretation Positive Section Notes: Quit smoking 07/2023 Vital Signs Temperature 97.5 degrees Fahrenheit 06/12/20 24 Blood pressure systolic 126 mm Hg 06/12/20 24 Blood pressure diastolic 82 mm Hg 024 Height 62.5 in 06/12/2024 Weight 156 lbs 06/12/2024 BMI 28.08 kg/m2 06/12/2024 Encounters Encounter Location Date Provider Diagnosis [place] [address] [place] [address] 06/12/2024 KEMAR MORROW Other specified noninflammatory disorders of vulva and perineum N90.89 Assessments Encounter Date Diagnosis (ICD Code) Assessment Notes Treatment Notes Treatment Clinical Notes Section Notes 06/12/2024 Other specified noninflammatory disorders of vulva and perineum (ICD-10 - N90.89) No change in appearance of the lesion. Will re-evaluate at routine tax assessor exam. Plan Of Treatment Treatment Notes Assessment Notes Other specified noninflammat ory disorders of vulva and perineum No change in appearance of the lesion. Will re-evaluate at routine tax assessor exam. Next Appt Details Follow Up: after 12/15/24, Re ason: Routine tax assessor exam Provider Name:KEMAR Alexis Sullivan, 01/22/2025 10:00:00 AM, [address], [place], [address], Progress Notes * SANNA CASTORENADOB: (73 yo F)Acc No.[id number]:06/12/2024 PROGRESS NOTES Patient:?JOSEMANUEL CASTORENAITH Provider:?KEMAR MORROW MD :1950???Age:73 Y???Sex:Female D ate:06/12/2024 Address:[address] [place], [place] [id number] Pcp:SUDHIR VEE Subjective: * Chief Complaints: * ???6 M0NTH F/U * HPI: ???Constitutional:? Patient is here today for a follow up visit. She underwent a yearly exam on 12/15/23 and was found to have a vulvar lesion. She declined excision at that time, as she prefered to monitor the area. At that visit, I described as follows: right side of the perineum just posterior to the labia majora is a 4mm round raised pigmented area (appears to be a keratosis) She reports: no changes - denies itching, pain, bleeding. * ROS:?General/Constitutional:?Denies?Chills.?Denies?Fever.?Gastrointestinal:?Denies?Abdominal pain.?Denies?Nausea.?Denies?Vomiting.?Women Only:?Patient denies?abnormal bleeding, vaginal discharge/itching.? * Medical History:? * Patient Care Nursing Assistant History:?/ Para?1/0.?Sexual activity?not currently sexually active.?Last Pap Smear:?07/20/2017 NIL/neg HR HPV.?Mammogram:?04/01/23 < 50% density, 03/2022, 03/2021, 03/2018 [facility].?Abnormal Pap Smear:?none.?LMP and menses?menopause mid 40s.?History of STD's:?none.?Colonoscopy?2014.?Bone Density:?09/08/21, 2006.?*Hep B Vac?2009.? * OB History:?Total pregnancies?.?(s)?1, uncomplicated.? * Surgical History:?Colonoscop y [id number] 08/20/23 * Hospitalization/Major Diagno stic Procedure:?passed out at [facility] - sinus infection 12/2016 * Family History:?Mother: dece ased, about age 60 from cancer, ?type - was supposed to have a hyst, diagnosed with Unspecified essential hypertension.?Father: , in his 70's from pneumonia, diagnosed with Diabetes mellitus without mention of complication, type II or unspecified type, not stated as uncontrolled, Unspecified essential hypertension.? No family hx breast,ovarian,colon ca Sister - Gaby - 1947 - well Sister - Jennfier - 1954 - HTN, uterine cancer. * Social History:?Tobacco Use:?Tobacco Use/Smoking?Are you a?former smoker ?How long has it been since you last smoked??3-6 months ?Additional Findings: Tobacco Non-User?Ex-light cigarette smoker (1- 9/day) ???Drugs/Alcohol:?Drugs?Have you used drugs other than those for medical reasons in the past 12 months??No ?Alcohol Screen (Audit-C)?Did you have a drink containing alcohol in the past year??Yes ?How often did you have a drink containing alcohol in the past year??2 to 3 times a week (3 points) ?How many drinks did you have on a typical day when you were drinking in the past year??1 or 2 drinks (0 point) ?How often did you have 6 or more drinks on one occasion in the past year??Never (0 point) ?Points?3 ?Interpretation?Positive ???Miscellaneous:?Children: no. ?Domestic violence: no. ?Exercise: yes, swim,walk,[place]. ?Home smoke detector use: yes, smoke detectors, carbon monoxide detector. ?Housing: owns a home. ?Living with: sister, Jennifer. ?Marital status: single. ?Natural support system: yes. 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 ?Pets: none. ?Sexual abuse: no. ?Sexually active: no. ?Verbal abuse: no. ???Quit smoking 07/2023. * Medications:?TakingAspir-81 Vitamin D 25 MCG (1000 UT) Tablet 1 tablet Orally Once a day Rosuvastatin Calcium 20 MG Capsule Sprinkle 1 capsule Orally Eliquis 5 MG Tablet TAKE 1 TABLET BY MOUTH TWICE A DAY Oral Metoprolol Tartrate 25 MG Tablet 1 tablet with food Oral Once a day Lisinopril 5 MG Tablet 1 tablet Orally Once a day Amiodarone HCl 200 MG Tablet Oral Taking Aspir-81 Taking Vitamin D 25 MCG (1000 UT) Tablet 1 tablet Orally Once a day Taking Rosuvastatin Calcium 20 MG Capsule Sprinkle 1 capsule Orally Taking Eliquis 5 MG Tablet TAKE 1 TABLET BY MOUTH TWICE A DAY Oral Taking Metoprolol Tartrate 25 MG Tablet 1 tablet with food Oral Once a day Taking Lisinopril 5 MG Tablet 1 tablet Orally Once a day Taking Amiodarone HCl 200 MG Tablet Oral * Allergies:?Zocor: muscle prema n - Allergy Objective: * Vitals:?Ht: 62.5 in, Wt: 156 lbs, BMI:28.08Index, BP: 126/82 mm Hg, Temp: 97.5 F. * Examination: ???Genitourinary - Female: ?GENERAL APPEARANCE:? alert, oriented, no apparent distress.?EXTERNAL GENITALS:?normal.?URETHRAL MEATUS:?normal.?ANUS/PERINEUM:?right side of the perineum just posterior to the labia majora is a 4mm round raised pigmented area (appears to be a keratosis).? Assessment: * Assessment: 1.?Other specified noninflam matory disorders of vulva and perineum - N90.89 (Primary)??? Plan: * Treatment: * Procedure Codes:? * Follow Up:?after 12/15/24 (Re ason: Routine tax assessor exam) * Images: Billing Information: * Visit Code:? 43626 Office Visit, Est Pt., Level 3. * Procedure Codes:? * Sign off status: Completed true * Provider:?KEMAR MORROW MD Date:?2023 Generated for Honey pardo/Abby/Lynetteransmitting on:?12/27/2024 10:48 AM EST History and Physical Notes * HPI (History of Present Illness) Category Sub-Category Detail Notes Category Not es Constitutional Patient is here today for a follow up visit. She underwent a yearly exam on 12/15/23 and was found to have a vulvar lesion. She declined excision at that time, as she prefered to monitor the area. At that visit, I described as follows: right side of the perineum just posterior to the labia majora is a 4mm round raised pigmented area (appears to be a keratosis) She reports: no changes - denies itching, pain, bleeding. Examination Category Sub-Category Detail Notes Category Not es Genitourinary - Female EXTERNAL GENITALS: normal GENERAL APPEARANCE: alert, oriented, no apparent distress URETHRAL MEATUS: normal ANUS/PERINEUM: right side of the pe rineum just posterior to the labia majora is a 4mm round raised pigmented area (appears to be a keratosis)
--- OUTSIDE RECORDS SUMMARY | 2024-12-27 10:48 | XMS_ITS ---
Author Organization [facility] Address [address] [place] [address] Care Team Providers Care Credit Risk Analyst Name Role Phone SUDHIR VEE Primary Care Provider KEMAR Martinez Unavailable [phone] Allergies Allergen (clinical drug ingredient) Drug/Non Drug Allergy documented on EMR Reaction Allergy Type Onset Date Status simvastatin Zocor muscle pain Drug Allergy Act barbie REASON FOR VISIT Annual CITY TREASURER Physical Problems Problem Type SNOMED Code ICD Code Onset Dates Problem Status W/U Status Risk Notes Problem Malignant tumor of thyroid gland (540010734) Malignant neoplasm of thyroid gland (C73) Active confirmed Encounters Encounter Location Date Provider Diagnosis [address] [address] 12/17/2024 KEMAR MORROW Encounter for gynecological examination [...] Follow Up: 1 Year, Reason: Y early Human Resource Intern Exam Provider Name:KEMAR Sullivan, 01/22/2025 10:00:00 AM, [address], [address], [place], [address], Progress Notes * KELSIE CASTORENADOB: (74 yo F)Acc No.[id number]:12/17/2024 PROGRESS NOTES Patient:?KELSIE CASTORENA Provider:?KEMAR MORROW MD :1950???Age:74 Y???Sex:Female D ate:12/17/2024 Address:[address] [place], [place] [id number] Pcp:SUDHIR VEE Subjective: * Chief Complaints: * ???1. Annual CITY TREASURER Physical. * HPI: ???Constitutional:? 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 ? 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 No further treatment was recommended. She has the following concerns: none* ? She has received the Eventifier Covid-19 vaccine. ? Relationship status: *single. She is not sexually active for years . Sexual partner(s): male. She does not wish to have STI testing. ? She does *not report vaginal dryness. She does not have hot flashes/night sweats. ? The patient has never had an abnormal pap smear. Her most recent pap smear was 07/20/17 - NIL, neg HR HPV. Further paps are not indicated. ? She has not been diagnosed with breast cancer. She does *not have a family history of breast cancer. Her last mammogram was *04/01/23. ? She does *not have a family history of colon cancer, but her father had polyps. She a has had a colonoscopy. The last colonoscopy was 2014. ? The patient does* exercise. She exercises x 2 days/week by cardio rehab. * ROS:?Annual Human Resource Intern Exam ROS:?Bowel habit changes?denies.?Bladder symptoms?denies.?Vaginal discharge, unusual?denies.?Vaginal itch or odor?denies.?weight or appetite changes?denies.?Chest pains, SOB?denies.?depression?denies.?Breast:?Denies?Breast lump.?Denies?Nipple discharge.?Hematology:?Denies?Swollen glands.?Skin:?Patient denies?changing moles.?Psychiatric:?Denies?Anxiety.? * Medical History:?Hyperlipide breana, unspecified, Essential (primary) hypertension, Type 2 diabetes mellitus without complications, Tobacco use, Obesity, unspecified, Malignant neoplasm of thyroid gland. * Surgical History:?Colonoscop y 2014, CABGx3 08/20/23, left thyroid lobectomy - papillary carcinoma 08/2024. * Hospitalization/Major Diagno stic Procedure:?passed out at [facility] - sinus infection 12/2016. * Family History:?Mother: dece ased, about age 60 from cancer, ?type - was supposed to have a hyst, diagnosed with Unspecified essential hypertension.?Father: , in his 70's from pneumonia, diagnosed with Diabetes mellitus without mention of complication, type II or unspecified type, not stated as uncontrolled, Unspecified essential hypertension.?Sister Gaby: alive 77 yrs, well.?Sister Jennifer: alive 70 yrs, HTN, uterine cancer.? No family hx breast,ovarian,colon ca. * Allergies:?Zocor: muscle prema n - Allergy. Objective: * Vitals:? * Examination: ???General Examination: ?GENERAL APPEARANCE:?in no acute distress, well developed, well nourished, electric organ inspector and repairer present in room.?HEAD:?normocephalic, atraumatic.?NECK/THYROID:?neck supple, full range of motion, thyroid normal.?LYMPH NODES:?no axillary or supraclavicular adenopathy.?SKIN:? normal, good turgor, no rashes, no suspicious lesions.?BREASTS:? normal, no dimpling, no discharge, no drainage, no masses palpable bilaterally, nontender.?ABDOMEN:? soft, non-tender, non distended without masses or hepatosplenomegay.?RECTAL:? normal tone, no masses palpable.?BACK:? no costovertebral angle tenderness.?FEMALE GENITOURINARY:?Vulva without lesions or masses,??right side of the perineum just posterior to the labia majora is a 4mm round raised pigmented area (appears to be a keratosis),?vagina pink without abnormal discharge, lesions or masses, cervix appears normal and is not tender to palpation, uterus is normal size, mobile, nontender and anteverted, ovaries are not palpable.?NEUROLOGIC:? alert and oriented, gait normal.?PSYCH:? alert, oriented, cognitive function intact, cooperative with exam, good eye contact, mood/affect full range, speech clear.? Assessment: * Assessment: 1.?Encounter for gynecologic al examination (general) (routine) without abnormal findings - Z01.419 (Primary)???2.?Encounter for screening mammogram for malignant neoplasm of breast - Z12.31??? Plan: * Treatment: 2.?Encounter for screening m ammogram for malignant neoplasm of breast?Imaging: MM Digital Screening Mammogram 3D * Follow Up:?1 Year (Reason: Y early Human Resource Intern Exam) * Images: Billing Information: * Visit Code:? 63539 Preventive Care Est Pt. Age 65 and over. * Procedure Codes:? * Electronic signature of KEMAR MORROW MD on 12/27/2024 at 10:47 AM EST Sign off status: Pending * Provider:?KEMAR MORROW MD Date:?2024 Generated for Honey pardo/Abby/eTransmitting on:?12/27/2024 10:47 AM EST History and Physical Notes * HPI (History of Present Illness) Category Sub-Category Detail Notes Category Not es Constitutional Kelsie is a 74yo who presents for her yearly legal service specialist exam. 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 No further treatment was recommended. She has the following concerns: none* She has received the Eventifier Covid-19 vaccine. Relationship status: *single. She is [...] General Examination GENERAL APPEARANCE: in no ac [place] distress, well developed, well nourished, electric organ inspector and repairer present in room HEAD: normocephalic, atrau matic [...]
--- OUTSIDE RECORDS SUMMARY | 2024-12-27 10:48 | XMS_ITS | Continuity of Care Document ---
Author Organization [facility] Address [address] [place] [address] Care Team Providers Care Optical Element Coater Name Role Phone Jo HANLEY, Lance Mix Primary Care Physician Encounter [facility] Date(s): 10/29/24 - 11/28/24 [facility] [address] [place] [address]- Encounter Type: Triage Allergies, Adverse Reactions, Alerts [...] virus vaccine, inactivated 07/25/17 Isidro rded SARS-CoV-2(COVID-19)mRNA-LNP vac([id number]) 07/31/24 Recorded SARS-CoV-2(COVID-19)mRNA-LNP vac([id number]) 07/18/23 Recorded RSV vaccine preF3, recombinant 07/18/23 Recorded tetanus-diphtheria toxoids (Td) 02/10/23 Given tetanus-diphtheria toxoids (Td) 03/15/06 Given [id number] 12y+ bivalent booster vax 08/04/22 Recorded SARS-CoV-2 [...] 3 11/18/09 Given 1Result Comment: done at [facility] 2Result Comment: [01/05/2018] [id number] 3Admin Note: info sheet given Medications Accu-Chek [...] Maintenance, 08/31/23 2:29:00 PM EST, EC Tablet, [facility], Partial fill upon patient request if [...] 9:03:00 AM EST, Route to Pharmacy Electronically, [facility], Partial fill upon patient request if [...] Refills, Maintenance, 08/21/24 11:50:00 AM EDT, Tablet, [facility]/pharmacy #[id number], Partial fill upon patient [...] 1:50:00 PM EST, Route to Pharmacy Electronically, [facility]/pharmacy #[id number], Partial fill upon patient [...] Refills, Maintenance, 06/14/24 12:06:00 PM EDT, Tablet, [facility]/pharmacy #[id number], this is an increase, [...] Refills, Maintenance, 09/13/24 9:03:00 AM EST, Tablet, [facility], Partial fill upon patient request [...] Active Osteopenia January 2009 -1.3, Confirmed Active Papillary thyroid carcinoma left thyroidectomy Confirmed 10/07/24 Active Type 2 diabetes mellitus Confirmed Active [...] on: 09/25/24 Sex Sex Representation Female (finding) Patient Care team information Care Team Personnel Name: Omaira Gomez Position: [facility] RN Supv Member Role: Primary Care Nurse Name: Tanisha Flores RN Position: S RN Member Role: Primary Care Nurse Name: Ryne Carlson RN Position: S RN Member Role: Primary Care Nurse Name: Lance Osorio MD Position: [facility] Physician - Primary Care Member Role: PCP Address: [address] [place] [address] Adult & Pediatric Medicine [address] Telecom: Name: Disha Hugo RN Position: S RN Member Role: Primary Care Nurse Name: Kathe Damon RN Position: S RN Member Role: Primary Care Nurse Name: Sofie Cosme RN Position: S RN Member Role: Primary Care Nurse Name: Katy Young RN Position: S RN Member Role: Primary Care Nurse Name: Ashley Montalvo RN Position: [facility] RN Member Role: Primary Care Nurse Care Team Related Persons Name: CAROL CASTORENA Insurance Providers Guarantor name: SANNA [facility] Plan Information #: 1 Payer: [facility] POS Member Number: NA Policy Number: NA Group Number: NA
--- OUTSIDE RECORDS SUMMARY | 2024-12-27 10:48 | XMS_ITS | Patient Health Record ---
Author Organization [facility] Address [address] [place] [address] [place] [address] Care Team Providers Care Fine Grade Operator Name Role Phone SUDHIR VEE Primary Care Provider KEMAR Martinez Unavailable [phone] Allergies Allergen (clinical drug ingredient) Drug/Non Drug Allergy documented on EMR Reaction Allergy Type Onset Date Status simvastatin Zocor muscle pain Drug Allergy Act barbie Reason For Referral No Information Medications Medication SIG (Take, Route, Frequency, Duration) [...] day for 30 day(s) Active Aspir-81 Active Immunizations Vaccine Route Administration Date Status Comme nts Pneumococcal polysaccharide PPV23 Unknown 08/09/2018 Pe nding Social History Tobacco Use: Social History Observation [...] Never (0 point) Points 3 Interpretation Positive Sexual History Question Answer Notes Had sex in the past 12 months (vaginal, oral, or anal)? No Section Notes: 4 cigs per week 4 cigs per week 4 cigs per week 4 cigs per week Quit smoking 07/2023 Quit smoking 07/2023 Problems Problem Type SNOMED Code ICD Code Onset Dates Problem Status W/U Status Risk Notes Problem Essential hypertension (66206439) Essential (primary) hypertension (I10) Active confirmed Problem Malignant tumor of thyroid gland (246135123) Malignant neoplasm of thyroid gland (C73) Active confirmed Problem Non-toxic single thyroid nodule (950124722) Nontoxic single thyroid nodule (E04.1) Active confirmed Problem Type II diabetes mellitus without complication (709498415) Type 2 diabetes mellitus without complications (E11.9) Active confirmed Problem Obesity (126511274) Obesity, unspecified (E66.9) Active confirmed Problem Hyperlipidemia (30006904) Hyperlipidemia, unspecified (E78.5) Active confirmed Problem Tobacco use (047663932) Tobacco use (Z72.0) Active confirmed Problem Body mass index 30+ - obesity (625528165) Body mass index [BMI] 30.0-30.9, adult (Z68.30) Active confirmed Vital Signs Temperature 97.5 degrees Fahrenheit 06/12/2024 Blood pressure diastolic 82 mm Hg 06/12/2024 Height 62.5 in 06/12/2024 Blood pressure systolic 126 mm Hg 06/12/2024 Weight 156 lbs 06/12/2024 BMI 28.08 kg/m2 06/12/2024 Encounters Encounter Location Date Provider Diagnosis [facility] [address] [place] [address] 06/12/2024 KEMAR MORROW Other specified noninflammatory disorders of vulva and perineum N90.89 Assessments Encounter Date Diagnosis (ICD Code) Assessment Notes Treatment Notes Treatment Clinical Notes Section Notes 06/12/2024 Other specified noninflammatory disorders of vulva and perineum (ICD-10 - N90.89) No change in appearance of the lesion. Will re-evaluate at routine garage supervisor exam. Plan Of Treatment Pending Test Test Name Order Date THIN PREP,HPV,ANGIE IF HPV+ (>29YR)(SCRN) 07/20/2017 MM Digital Screening Mammogram 3D 2021 MM Digital Screening Mammogram 3D 2023 Next Appt Details Provider Name:KEAMR Alexis Sullivan, 01/22/2025 10:00:00 AM, [address], [address], [place], [address], Insurance Providers Payer Name Payer Address Payer Phone Subscriber Number Group Number Insured Name Patient Relationship to Insured Coverage Start Date Coverage End Date [employer] [address] [place]EL[place] JAMEL [id number] SANNA CASTORENA Self - patient is the insured Medical (General) History Medical History History ICD Code Hyperlipidemia, unspecified E78.5 Essential (primary) hypertension I10 Type 2 diabetes mellitus without complic ations E11.9 Tobacco use Z72.0 Obesity, unspecified E66.9 Malignant neoplasm of thyroid gland C73 Surgical History Surgery Date(Month/Year) Colonoscopy 2014 CABGx3 08/20/23 left thyroid lobectomy - papillary carci noma 08/2024 Hospitalization History Reason Date(Month/Year) passed out at [facility] - sinus infection
--- OUTSIDE RECORDS SUMMARY | 2024-12-27 10:48 | XMS_ITS | Continuity of Care Document ---
Author Organization [facility] Address [address] [place] [phone] Care Team Providers Care Columnist Name Role Phone Jo HANLEY, Lance Mix Primary Care Physician Encounter [facility] [place] [facility] Date(s): 10/29/24 - 11/28/24 [facility] [address] [place] [id number] Encounter Type: Triage Allergies, Adverse Reactions, Alerts [...] virus vaccine, inactivated 07/25/17 Isidro rded SARS-CoV-2(COVID-19)mRNA-LNP vac([id number]) 07/31/24 Recorded SARS-CoV-2(COVID-19)mRNA-LNP vac([id number]) 07/18/23 Recorded RSV vaccine preF3, recombinant 07/18/23 Recorded tetanus-diphtheria toxoids (Td) 02/10/23 Given tetanus-diphtheria toxoids (Td) 03/15/06 Given [id number] 12y+ bivalent booster vax 08/04/22 Recorded SARS-CoV-2 [...] 3 11/18/09 Given 1Result Comment: done at [facility] 2Result Comment: [01/05/2018] [id number] 3Admin Note: info sheet given Medications Accu-Chek [...] Maintenance, 08/31/23 2:29:00 PM EST, EC Tablet, [facility], Partial fill upon patient [...] 9:03:00 AM EST, Route to Pharmacy Electronically, [facility], Partial fill upon patient [...] Refills, Maintenance, 08/21/24 11:50:00 AM EDT, Tablet, [facility]/pharmacy #[id number], Partial fill upon patient request [...] 1:50:00 PM EST, Route to Pharmacy Electronically, [facility]/pharmacy #[id number], Partial fill upon patient requestif [...] Refills, Maintenance, 06/14/24 12:06:00 PM EDT, Tablet, [facility]/pharmacy #[id number], this is an increase, 158, cm, 05/15/24 14:53:00 EDT, Height, 76.25, kg, 09/09/23 9:49:00 EST, Dry Weight Start Date: 06/14/24 Status: Ordered Quantity: 90.0 Unit: tablet Repeat number: 4 Tylenol Extra Strength 500 mg oral tablet 2 tablet = 1,000 mg, By Mouth, 3 times a day, PRN for pain, # 24 tablet, 0 Refills, Maintenance, 09/13/24 9:03:00 AM EST, Tablet, [facility], Partial fill upon patient [...] Care Team Personnel Name: Omaira Gomez Position: S RN Supv Member Role: Primary Care Nurse Name: Tanisha Flores RN Position: S RN Member Role: Primary Care Nurse Name: Ryne Carlson RN Position: [facility] RN Member Role: Primary Care Nurse Name: Lance Osorio MD Position: [facility] Physician - Primary Care Member Role: PCP Address: [address] [place] [address] Adult & Pediatric Medicine [address] Telecom: Name: Disha Hugo RN Position: S RN Member Role: Primary Care Nurse Name: Kathe Damon RN Position: S RN Member Role: Primary Care Nurse Name: Sofie Cosme RN Position: S RN Member Role: Primary Care Nurse Name: Katy Young RN Position: S RN Member Role: Primary Care Nurse Name: Ashley Montalvo RN Position: [facility] RN Member Role: Primary Care Nurse Care Team Related Persons Name: CAROL CASTORENA Insurance Providers Guarantor name: [facility] Plan Information #: 1 Payer: [facility] POS Member Number: NA Policy Number: NA Group Number: NA
== END 2024-12-27 10:17 | disposition home or self-care (01) ==
PROVIDERS: PCP Internal Medicine; Visit Provider Internal Medicine
DX: I25.10 Atherosclerotic heart disease of native coronary artery without angina pectoris (principal); I48.0 Paroxysmal atrial fibrillation; I42.9 Cardiomyopathy, unspecified
CPT/HCPCS: 93010; 99214

== ENCOUNTER → 2024-12-27 09:32 | Outpatient (BNVA) | payer OTHER, SELFPAY | PROVIDERS: PCP Internal Medicine; Visit Provider Internal Medicine | DX: I48.0 Paroxysmal atrial fibrillation (principal); I25.10 Atherosclerotic heart disease of native coronary artery without angina pectoris; I42.9 Cardiomyopathy, unspecified; Z79.899 Other long term (current) drug therapy | CPT/HCPCS: 93005 ==

== ENCOUNTER → 2025-01-04 09:36 | Outpatient (BNVA) | payer OTHER, SELFPAY | PROVIDERS: PCP Internal Medicine; Visit Provider Internal Medicine ==

== ENCOUNTER 2025-06-05 12:04 | Outpatient (AMB) | payer OTHER, SELFPAY ==
--- OUTSIDE RECORDS SUMMARY | 2024-12-17 05:00 | XMS_ITS ---
Author Organization [facility] Address [address] [place] [id number] Care Team Providers Care Ornithology Teacher Name Role Phone SUDHIR VEE Primary Care Provider KEMAR Martinez Unavailable [phone] Allergies Allergen (clinical drug ingredient) Drug/Non Drug Allergy documented on EMR Reaction Allergy Type Onset Date Status simvastatin Zocor muscle pain Drug Allergy Act barbie REASON FOR VISIT Annual HOSPITALIST NOCTURNIST PHYSICIAN Physical Problems Problem Type SNOMED Code ICD Code Onset Dates Problem Status W/U Status Risk Notes Problem Malignant tumor of thyroid gland (247881566) Malignant neoplasm of thyroid gland (C73) Active confirmed Encounters Encounter Location Date Provider Diagnosis [address] [id number] 12/17/2024 KEMAR MORROW Encounter for gynecological examination (general) (routine) without abnormal findings Z01.419 and Encounter for screening mammogram for malignant neoplasm of breast Z12.31 Assessments Encounter Date Diagnosis (ICD Code) Assessment Notes Treatment Notes Treatment Clinical Notes Section Notes 12/17/2024 Encounter for gynecological examination (general) (routine) without abnormal findings (ICD-10 - Z01.419) During the visit, the following areas of concern were addressed: Discussed sstopping cervical cancer screening as per ASCCP guidelines. Advised continued annual pelvic exams. Patient encouraged to increase her level of exercise. SBE technique encouraged/tau ght. Patient reminded when annual mammogram is due. Patient encouraged to keep colon screening up to date. 12/17/2024 Encounter for screening mammogram for malignant neoplasm of breast (ICD-10 - Z12.31) Plan Of Treatment Treatment Notes Assessment Notes Encounter for gynecological examination (general) (routine) without abnormal findings During the visit, the following areas of concern were addressed: Discussed sstopping cervical cancer screening as per ASCCP guidelines. Advised continued annual pelvic exams. Patient encouraged to increase her level of exercise. SBE technique encouraged/taught. Patient reminded when annual mammogram is due. Patient encouraged to keep colon screening up to date. Pending Test Test Name Order Date MM Digital Screening Mammogram 3D 2024 Next Appt Details Follow Up: 1 Year, Reason: Y early [employer] Associate Exam Provider Name:KEMAR Sullivan, 01/24/2026 09:40:00 AM, [address], [address], [place], [address], Progress Notes * KELSIE CASTORENADOB: 2 (74 yo F)Acc No.[id number]:12/17/2024 PROGRESS NOTES Patient: KELSIE YIP Provider: Alexis MORROW MD :1950 A ge:74 Y S ex:Female Date:12/17/2024 Address:[address] [place], [place] [id number] Pcp:SUDHIR VEE Subjective: * Chief Complaints: * 1 . Annual HOSPITALIST NOCTURNIST PHYSICIAN Physical. 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 No further treatment was recommended. She has the following concerns: none* She has received the [employer] Covid-19 vaccine. Relationship status: *single. She is not sexually active for years . Sexual partner(s): male. She does not wish to have STI testing. She does *not report vaginal dryness. She does not have hot flashes/night sweats. The patient has never had an abnormal pap smear. Her most recent pap smear was 07/20/17 - NIL, neg HR HPV. Further paps are not indicated. She has not been diagnosed with breast cancer. She does *not have a family history of breast cancer. Her last mammogram was *04/01/23. She does *not have a family history of colon cancer, but her father had polyps. She a has had a colonoscopy. The last colonoscopy was 2014. The patient does* exercise. She exercises x 2 days/week by cardio rehab. * ROS: A nnual [employer] Associate Exam ROS: Bowel habit changes d enies. B ladder symptoms d enies. V aginal discharge, unusual d enies. V aginal itch or odor d enies. w eight or appetite changes d enies. C hest pains, SOB d enies. d epression d enies.? B reast: Denies B reast lump. D enies N ipple discharge.? H ematology: Denies S wollen glands. S kin: Patient denies c hanging moles. P sychiatric: Denies A nxiety. * Medical History: H yperlipidemia, unspecified, Essential (primary) hypertension, Type 2 diabetes mellitus without complications, Tobacco use, Obesity, unspecified, Malignant neoplasm of thyroid gland. * Surgical History: C olonoscopy 2014, CABGx3 08/20/23, left thyroid lobectomy - papillary carcinoma 08/2024. * Hospitalization/Major Diagno stic Procedure: p assed out at [facility] - sinus infection 12/2016. * Family History: M other: , about age 60 from cancer, ?type - was supposed to have a hyst, diagnosed with Unspecified essential hypertension. F ather: , in his 70's from pneumonia, diagnosed with Diabetes mellitus without mention of complication, type II or unspecified type, not stated as uncontrolled, Unspecified essential hypertension. S gracy Griffin: alive 77 yrs, well.?Sister Jennifer: alive 70 yrs, HTN, uterine cancer. No family hx breast,ovarian,colon ca. * Allergies: Z ocor: muscle pain - Allergy. Objective: * Vitals: * Examination: G eneral Examination: GENERAL APPEARANCE: i n no acute distress, well developed, well nourished, toy department manager present in room. HEAD: n ormocephalic, atraumatic. NECK/THYROID: n jeana supple, full range of motion, thyroid normal. LYMPH NODES: n o axillary or supraclavicular adenopathy.? SKIN: normal, good turgor, no rashes, no suspicious lesions. BREASTS: normal, no dimpling, no discharge, no drainage, no masses palpable bilaterally, nontender. ABDOMEN: soft, non-tender, non distended without masses or hepatosplenomegay. RECTAL: normal tone, no masses palpable. BACK: no costovertebral angle tenderness. FEMALE GENITOURINARY: V ulva without lesions or masses,? r ight side of the perineum just posterior to the labia majora is a 4mm round raised pigmented area (appears to be a keratosis), v agina pink without abnormal discharge, lesions or masses, cervix appears normal and is not tender to palpation, uterus is normal size, mobile, nontender and anteverted, ovaries are not palpable.? NEUROLOGIC: alert and oriented, gait normal. PSYCH: alert, oriented, cognitive function intact, cooperative with exam, good eye contact, mood/affect full range, speech clear. Assessment: * Assessment: 1. E ncounter for gynecological examination (general) (routine) without abnormal findings - Z01.419 (Primary) 2 . E ncounter for screening mammogram for malignant neoplasm of breast - Z12.31 Plan: * Treatment: 2. E ncounter for screening mammogram for malignant neoplasm of breast I maging: MM Digital Screening Mammogram 3D * Follow Up: 1 Year (Reason: Yearly [employer] Associate Exam) * Images: Billing Information: * Visit Code: 71108 Preventive Care Est Pt. Age 65 and over. * Procedure Codes: * Electronic signature of KEMAR MORROW MD on 06/05/2025 at 12:49 PM EDT Sign off status: Pending * Provider: Alexis MORROW MD Date: 0 12/17/2024 Generated for Honey pardo/Abby/eTransmitting on: 0 06/05/2025 12:49 PM EDT History and Physical Notes * HPI (History of Present Illness) Category Sub-Category Detail Notes Category Not es Constitutional Kelsie is a 74yo who presents for her yearly specialties operator exam. 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 No further treatment was recommended. She has the following concerns: none* She has received the [employer] Covid-19 vaccine. Relationship status: *single. She is not sexually active for years . Sexual partner(s): male. She does not wish to have STI testing. She does *not report vaginal dryness. She does not have hot flashes/night sweats. The patient has never had an abnormal pap smear. Her most recent pap smear was 07/20/17 - NIL, neg HR HPV. Further paps are not indicated. She has not been diagnosed with breast cancer. She does *not have a family history of breast cancer. Her last mammogram was *04/01/23. She does *not have a family history of colon cancer, but her father had polyps. She a has had a colonoscopy. The last colonoscopy was 2014. The patient does* exercise. She exercises x 2 days/week by cardio rehab. Examination Category Sub-Category Detail Notes Category Not es General Examination GENERAL APPEARANCE: in no ac elim ira distress, well developed, well nourished, toy department manager present in room HEAD: normocephalic, atrau matic NECK/THYROID: neck supple, full ra nge of motion, thyroid normal ABDOMEN: soft, non-tender, no n distended without masses or hepatosplenomegay NEUROLOGIC: alert and oriented, gait normal SKIN: normal, good turgor, no rashes, no suspicious lesions BACK: no costovertebral an gle tenderness BREASTS: normal, no dimpling, no discharge, no drainage, no masses palpable bilaterally, nontender LYMPH NODES: no axillary or supra clavicular adenopathy RECTAL: normal tone, no mass es palpable PSYCH: alert, oriented, cog nitive function intact, cooperative with exam, good eye contact, mood/affect full range, speech clear FEMALE GENITOURINARY: Vulva without lesi ons or masses, right side of the perineum just posterior to the labia majora is a 4mm round raised pigmented area (appears to be a keratosis), vagina pink without abnormal discharge, lesions or masses, cervix appears normal and is not tender to palpation, uterus is normal size, mobile, nontender and anteverted, ovaries are not palpable
[2025-06-05 12:38] VITALS: BP 118/60; PULSE 77; BMI 30.2
--- NOTE | 2025-06-05 12:38 | MHC.OFFVIS ---
Vital Signs 06/05/25 12:38 Height 5 ft 2 in Weight 165 lb 5.547 oz BMI 30.2 BP 118/60 Blood Pressure Location Lt brachial Position Sitting Pulse 77 Pulse Source Monitor Intake Visit Reasons: 3m follow up Allergies simvastatin Adverse Reaction (Intermediate, Verified 03/23/24 12:30) Muscle Pain Medication List - Last Reconciled 06/05/25 by Chris Mendiola MD apixaban (Eliquis) 5 mg PO BID cilostazol 50 mg PO BID dronedarone (Multaq) 400 mg PO BID 3 months lisinopril 5 mg PO DAILY metoprolol succinate ER (Toprol XL) 25 mg PO DAILY rosuvastatin 40 mg PO DAILY HPI Comments Details: Kelsie returns for follow-up regarding coronary artery disease and atrial fibrillation. In 2022, she had coronary artery bypass surgery. In 2023 had cardioversion for atrial fibrillation. She was on Amiodarone but now on Multaq. Overall, she states she feels good. No specific concerns. 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 Father No problems noted. Social History Alcohol intake: current Alcohol intake frequency: holidays/special occasions only Alcohol type: wine Patient Tobacco Use Status: Former Tobacco user Years Smoked: 20 +/- Review of Systems Const Denies weakness ENT Denies dizziness Card Denies chest pain, Denies chest pain with activity, Denies syncope, Denies rapid heart rate, Denies pedal edema, Denies edema, Denies leg edema, Denies lightheadedness, Denies palpitations, Denies dyspnea, Denies dyspnea on exertion and Denies orthopnea Resp Denies cough, Denies dyspnea and Denies dyspnea on exertion GI Denies hematochezia and Denies change in stool character Musc Denies abnormal gait, Denies muscle cramps, Denies muscle weakness, Denies numbness, Denies radiating pain into limb and Denies tingling Neuro Denies abnormal gait, Denies dizziness, Denies syncope, Denies numbness, Denies tingling and Denies weakness Endo Denies palpitations Physical Exam Vital Signs: Last Vital Signs Pulse 77 06/05/25 12:38 BP 118/60 06/05/25 12:38 BMI result Body Mass Index 30.2 Const General: comfortable and no acute distress Orientation/consciousness: patient oriented x3 HEENT Other: Unremarkable Head: Yes normal to inspection Neck Neck: Yes normal visual inspection Chest Chest palpation & inspection: normal inspection of the chest Resp Auscultation: clear to auscultation bilaterally Cardio Palpation: normal PMI Heart sounds: S1 normal heart sound present, S2 normal heart sound present, no gallops, no murmurs and no rubs GI Palpation (GI): Soft to palpation Back/Spine/Pelvis Other: unremarkable Skin General skin exam: no rashes or lesions noted Neuro General: patient oriented x3 Extrem General: Yes normal to inspection Psych Mental Status: mental status grossly normal Office Procedures EKG Details: EKG with underlying sinus rhythm at 77/Min; VA prolongation to 212 milliseconds; rightward axis; cannot exclude old septal infarct; [place]. [id number], Complete Assessment & Plan Assessment & Plan (1) Atherosclerotic cardiovascular disease: Code(s): I25.10 - Atherosclerotic heart disease of [place] coronary artery without angina pectoris Category: Medical Plan: Status post coronary bypass. Clinically, no angina. Most recent LDL 65 mg/dL and triglycerides 67 mg/dL. (2) PAF (paroxysmal atrial fibrillation): Code(s): I48.0 - Paroxysmal atrial fibrillation Category: Medical Plan: Status post cardioversion. On low-dose beta-blockers/Multaq/Eliquis. Corrected QT is within range. (3) Cardiomyopathy: Code(s): I42.9 - Cardiomyopathy, unspecified Category: Medical Plan: Echocardiogram shows mild cardiomyopathy with an LVEF of 45-50%. Could be related to coronary disease as well as atrial fibrillation. Clinically, no heart failure symptoms or signs. Repeat echocardiogram denied by insurance. Plan Discussion Notes I discussed with the patient that her current treatment plan is effective, and there is no need for changes at this time. I advised her to return for an EKG in three months and a follow-up visit in six months to monitor her progress. Patient was informed and verbally consented to the use of an ambient scribe for clinic note documentation during this visit. Patient Instructions: - Continue taking Multaq and Eliquis as prescribed. - Return for an EKG in three months. - Schedule a follow-up visit in six months. Coding Level of Care Code Est Pt Level 4 (69553) Complex EM visit Add On G2211 Diagnoses Atherosclerotic cardiovascular disease I25.10 PAF (paroxysmal atrial fibrillation) I48.0 Cardiomyopathy I42.9 CPT Codes EKG - CPT: 33789-[id number], Complete ([id number])
== END 2025-06-05 13:04 | disposition home or self-care (01) ==
LOC: HO.HCS 12:04
PROVIDERS: PCP Internal Medicine; Visit Provider Internal Medicine
DX: I25.10 Atherosclerotic heart disease of native coronary artery without angina pectoris (principal); I48.0 Paroxysmal atrial fibrillation; I42.9 Cardiomyopathy, unspecified
CPT/HCPCS: 93010; 99214

== ENCOUNTER → 2025-06-05 12:04 | Outpatient (BNVA) | payer OTHER, SELFPAY | PROVIDERS: PCP Internal Medicine; Visit Provider Internal Medicine | DX: I25.10 Atherosclerotic heart disease of native coronary artery without angina pectoris (principal) | CPT/HCPCS: 93005 ==